=== PATIENT | female | born 1960 | race American Indian/Alaskan Native ===

== ENCOUNTER 2018-03-10 19:17 | Inpatient (IN) | payer OTHER ==
--- NOTE | 2018-03-10 19:28 | Emergency Department Report ---
ED Neuro Deficit HPI - General Chief Complaint: Neuro Symptoms/Deficit Stated Complaint: POSSIBLE STROKE Time Seen by Provider: 03/10/18 19:26 Source: patient, EMS, old records reviewed (no previous [facility] record for review) Mode of arrival: Stretcher Limitations: Physical Limitation - History of Present Illness Initial Comments: 57-year-old female the past medical history of hypertension presents to the ER with stroke symptoms. Patient was last seen normal by her family members 2 hours prior to arrival. Her found her on the floor rubbing her left leg and unable to speak. Patient presents with left-sided facial droop, typically slurred speech, and left-sided weakness. Patient denies any pain. Pt is compliant with her bp med with last dose this am. PMD: [facility] - Related Data Home Medications: Home Medications Medication Instructions Recorded Confirmed Last Taken Lisinopril/Hydrochlorothiazide 2 each PO QDAY 03/10/18 03/10/18 Unknown [Zestoretic 10-12.5 mg Tablet] Allergies/Adverse Reactions: Allergies Allergy/AdvReac Type Severity Reaction Status Date / Time No Known Allergies Allergy Verified 03/10/18 20:26 ED Review of Systems ROS: Stated complaint: POSSIBLE STROKE Other details as noted in HPI Comment: All other systems reviewed and negative ED Past Medical Hx - Medications Home Medications: Home Medications Medication Instructions Recorded Confirmed Last Taken Type Lisinopril/Hydrochlorothiazide 2 each PO QDAY 03/10/18 03/10/18 Unknown History [Zestoretic 10-12.5 mg Tablet] ED Neuro Physical Exam - General Limitations: Physical Limitation Suspected Stroke: Yes - NIHSS Assessment Interval: Baseline 1a. Level of Consciousness: alert 1b. LOC Questions: answers correctly 1c. LOC Commands: performs tasks correctly 2. Best Gaze: normal 3. Visual: no visual loss 4. Facial Palsy: complete paralysis (left) 5b. Motor Arm Right: no movement 5a. Motor Arm Left: no drift 6a. Motor Leg Left: no drift 6b. Motor Leg Right: no gravity effort 7. Limb Ataxia: present 1 limb (unable to move left arm) 8. Sensory: normal 9. Best Language: no aphasia 10. Dysarthria: severe dysarthria 11. Extinction/Inattention: no abnormality Total Score: 13 Stroke Severity: Moderate Stroke - Other Other exam information: General: No limitations, patient is alert in no acute distress Head exam: Atraumatic, normocephalic Eyes exam: Normal appearance, pupils equal reactive to light, extraocular movements intact ENT: Moist mucous membrane, normal oropharynx Neck exam: Normal inspection, full range of motion, no meningismus nontender Respiratory exam: Clear to auscultation bilateral, no wheezes, rales, crackles Cardiovascular: Normal rate and rhythm, normal heart sounds Abdomen: Soft, nondistended, and nontender, with normal bowel sounds, no rebound, or guarding Extremity: Full range of motion normal inspection no deformity Back: Normal Inspection, full range of motion, no tenderness Neurologic: Alert, see NIHSS Psychiatric: normal affect, normal mood Skin: Warm, dry, intact ED Course Vital Signs 03/10/18 03/10/18 03/10/18 19:27 19:30 19:45 Temperature 98.7 F Pulse Rate 90 Respiratory 18 18 Rate Blood Pressure 133/80 119/74 122/77 Blood Pressure 133/80 [Right] O2 Sat by Pulse 100 98 99 Oximetry 03/10/18 03/10/18 03/10/18 20:00 20:03 20:05 Temperature Pulse Rate 89 89 89 Respiratory 14 Rate Blood Pressure 124/69 124/69 124/69 Blood Pressure [Right] O2 Sat by Pulse 99 Oximetry 03/10/18 03/10/18 03/10/18 20:15 20:34 20:45 Temperature Pulse Rate 90 90 102 H Respiratory 18 16 17 Rate Blood Pressure 121/63 Blood Pressure 127/80 144/82 [Right] O2 Sat by Pulse 99 97 97 Oximetry 03/10/18 03/10/18 03/10/18 21:01 21:15 21:31 Temperature Pulse Rate 92 H 95 H 91 H Respiratory 15 11 L 18 Rate Blood Pressure 124/76 131/77 141/66 Blood Pressure [Right] O2 Sat by Pulse 99 96 95 Oximetry 03/10/18 03/10/18 03/10/18 21:51 22:01 22:21 Temperature Pulse Rate 76 80 95 H Respiratory 18 19 18 Rate Blood Pressure 145/66 129/66 135/75 Blood Pressure [Right] O2 Sat by Pulse 97 97 96 Oximetry - Reevaluation(s) Reevaluation #1: 03/10/18 21:39 RN reports that pt has some swelling to left side face. Pt has swelling to left upper lift and left cheek. TPA has finished infusing and pt returned from ct angio and received IV contrast. No tongue swelling or difficulty breathing. PT remains NPO since she is drooling intermittently since arrival secondary to cva. IV benadryl and Solumedrol ordered in ED. - Consultations Consultation #1: 03/10/18 19:34 case d/w DR Ng, he will consult on pt 03/10/18 19:53 Dr Ng aggrees to tpa, rec cta head and neck Consultation #2: 03/10/18 20:09 Case d/w Dr Vega with [facility] who approves admission here - Lab Data Result diagrams: 03/10/18 19:25 03/10/18 19:25 Lab Results 03/10/18 03/10/18 03/10/18 Range/Units 19:25 19:25 19:25 WBC 11.6 H (4.5-11.0) K/mm3 RBC 4.60 (3.65-5.03) M/mm3 Hgb 14.0 (10.1-14.3) gm/dl Hct 41.7 (30.3-42.9) % MCV 91 (79-97) fl MCH 30 (28-32) pg MCHC 34 (30-34) % RDW 14.2 (13.2-15.2) % Plt Count 210 (140-440) K/mm3 Lymph % (Auto) 14.8 (13.4-35.0) % [place] % (Auto) 4.6 (0.0-7.3) % Eos % (Auto) 0.3 (0.0-4.3) % Baso % (Auto) 0.3 (0.0-1.8) % Lymph # 1.7 (1.2-5.4) K/mm3 [place] # 0.5 (0.0-0.8) K/mm3 Eos # 0.0 (0.0-0.4) K/mm3 Baso # 0.0 (0.0-0.1) K/mm3 Total Counted Cancelled Seg Neutrophils % 80.0 H (40.0-70.0) % Seg Neuts % (Manual) Cancelled Band Neutrophils % Cancelled Lymphocytes % (Manual) Cancelled Reactive Lymphs % (Man) Cancelled Monocytes % (Manual) Cancelled Eosinophils % (Manual) Cancelled Basophils % (Manual) Cancelled Metamyelocytes % Cancelled Myelocytes % Cancelled Promyelocytes % Cancelled Blast Cells % Cancelled Nucleated RBC % Cancelled Seg Neutrophils # 9.1 H (1.8-7.7) K/mm3 Seg Neutrophils # Man Cancelled Band Neutrophils # Cancelled Lymphocytes # (Manual) Cancelled Abs React Lymphs (Man) Cancelled Monocytes # (Manual) Cancelled Eosinophils # (Manual) Cancelled Basophils # (Manual) Cancelled Metamyelocytes # Cancelled Myelocytes # Cancelled Promyelocytes # Cancelled Blast Cells # Cancelled WBC Morphology Cancelled Hypersegmented Neuts Cancelled Hyposegmented Neuts Cancelled Hypogranular Neuts Cancelled Hypersegmented Polys Cancelled Smudge Cells Cancelled Toxic Granulation Cancelled Toxic Vacuolation Cancelled Dohle Bodies Cancelled Pelger-Huet Anomaly Cancelled Shayla Rods Cancelled Platelet Estimate Cancelled Clumped Platelets Cancelled Plt Clumps, EDTA Cancelled Large Platelets Cancelled Giant Platelets Cancelled Platelet Satelliting Cancelled Plt Morphology Comment Cancelled RBC Morphology Cancelled Dimorphic RBCs Cancelled Polychromasia Cancelled Hypochromasia Cancelled Poikilocytosis Cancelled Basophilic Stippling Cancelled Anisocytosis Cancelled Microcytosis Cancelled Macrocytosis Cancelled Spherocytes Cancelled Pappenheimer Bodies Cancelled Sickle Cells Cancelled Target Cells Cancelled Tear Drop Cells Cancelled Ovalocytes Cancelled Stomatocytes Cancelled Helmet Cells Cancelled [place] Bodies Cancelled Independence Rings Cancelled [place] Cells Cancelled Bite Cells Cancelled Crenated Cell Cancelled Elliptocytes Cancelled Acanthocytes (Spur) Cancelled Rouleaux Cancelled Hemoglobin C Crystals Cancelled Schistocytes Cancelled Malaria parasites Cancelled Keron Bodies Cancelled Hem Pathologist Commnt Cancelled PT 10.7 L (12.2-14.9) Sec. INR 0.74 L (0.87-1.13) APTT > 240.0 H* (24.2-36.6) Sec. Thrombin Time (15.1-19.6) Sec. Sodium 139 (137-145) mmol/L Potassium 3.5 L (3.6-5.0) mmol/L Chloride 99.3 (98-107) mmol/L Carbon Dioxide 26 (22-30) mmol/L Anion Gap 17 mmol/L BUN 13 (7-17) mg/dL Creatinine 0.7 (0.7-1.2) mg/dL Estimated GFR > 60 ml/min BUN/Creatinine Ratio 19 % Glucose 124 H (65-100) mg/dL POC Glucose (70-105) Calcium 9.8 (8.4-10.2) mg/dL Troponin T < 0.010 (0.00-0.029) ng/mL 03/10/18 03/10/18 03/10/18 Range/Units 19:25 20:15 21:31 WBC (4.5-11.0) K/mm3 RBC (3.65-5.03) M/mm3 Hgb (10.1-14.3) gm/dl Hct (30.3-42.9) % MCV (79-97) fl MCH (28-32) pg MCHC (30-34) % RDW (13.2-15.2) % Plt Count (140-440) K/mm3 Lymph % (Auto) (13.4-35.0) % [place] % (Auto) (0.0-7.3) % Eos % (Auto) (0.0-4.3) % Baso % (Auto) (0.0-1.8) % Lymph # (1.2-5.4) K/mm3 [place] # (0.0-0.8) K/mm3 Eos # (0.0-0.4) K/mm3 Baso # (0.0-0.1) K/mm3 Total Counted Seg Neutrophils % (40.0-70.0) % Seg Neuts % (Manual) Band Neutrophils % Lymphocytes % (Manual) Reactive Lymphs % (Man) Monocytes % (Manual) Eosinophils % (Manual) Basophils % (Manual) Metamyelocytes % Myelocytes % Promyelocytes % Blast Cells % Nucleated RBC % Seg Neutrophils # (1.8-7.7) K/mm3 Seg Neutrophils # Man Band Neutrophils # Lymphocytes # (Manual) Abs React Lymphs (Man) Monocytes # (Manual) Eosinophils # (Manual) Basophils # (Manual) Metamyelocytes # Myelocytes # Promyelocytes # Blast Cells # WBC Morphology Hypersegmented Neuts Hyposegmented Neuts Hypogranular Neuts Hypersegmented Polys Smudge Cells Toxic Granulation Toxic Vacuolation Dohle Bodies Pelger-Huet Anomaly Shayla Rods Platelet Estimate Clumped Platelets Plt Clumps, EDTA Large Platelets Giant Platelets Platelet Satelliting Plt Morphology Comment RBC Morphology Dimorphic RBCs Polychromasia Hypochromasia Poikilocytosis Basophilic Stippling Anisocytosis Microcytosis Macrocytosis Spherocytes Pappenheimer Bodies Sickle Cells Target Cells Tear Drop Cells Ovalocytes Stomatocytes Helmet Cells [place] Bodies [place] Rings [place] Cells Bite Cells Crenated Cell Elliptocytes Acanthocytes (Spur) Rouleaux Hemoglobin C Crystals Schistocytes Malaria parasites Keron Bodies Hem Pathologist Commnt PT 13.2 (12.2-14.9) Sec. INR 0.95 (0.87-1.13) APTT 25.3 (24.2-36.6) Sec. Thrombin Time 15.7 (15.1-19.6) Sec. Sodium (137-145) mmol/L Potassium (3.6-5.0) mmol/L Chloride (98-107) mmol/L Carbon Dioxide (22-30) mmol/L Anion Gap mmol/L BUN (7-17) mg/dL Creatinine (0.7-1.2) mg/dL Estimated GFR ml/min BUN/Creatinine Ratio % Glucose (65-100) mg/dL POC Glucose 133 H (70-105) Calcium (8.4-10.2) mg/dL Troponin T (0.00-0.029) ng/mL - EKG Data -: EKG Interpreted by Ne EKG shows normal: sinus rhythm, axis (qrs 21), QRS complexes (qrsd 92), ST-T waves (no stemi/t inv) Rate: normal (82) When compared to previous EKG there are: previous EKG unavailable - Radiology Data Radiology results: report reviewed ct head: naf as per radiology FINAL REPORT EXAM: CT HEAD/BRAIN WO CON HISTORY: neuro deficits lt; 6hrs or sx present upon awakening TECHNIQUE: Standard unenhanced CT of the head at 5.0 millimeter axial increments. PRIORS: None. FINDINGS: The ventricular system is normal in size and configuration. There is no evidence for parenchymal volume loss. There is no evidence for mass lesion, mass effect, midline shift, acute intracranial hemorrhage, or acute ischemia/ infarction. No evidence for acute skull fracture is seen. No abnormality in the overlying scalp soft tissues is seen. Visualized paranasal sinuses are clear. IMPRESSION: Negative CT of the head. No acute intracranial process noted. FINAL REPORT PROCEDURE: CT ANGIO HEAD TECHNIQUE: Computerized tomographic angiography of the head was performed after the IV injection of iodinated nonionic contrast including image processing. The image data was postprocessed using 2-dimensional multiplanar reformatted (MPR) and 3-dimensional (MIP and/or volume rendered) techniques. HISTORY: acute cva, left sided weakness/facial droop COMPARISON: No prior studies are available for comparison. FINDINGS: Carotid siphons: Normal. Anterior cerebral arteries: Normal. Middle cerebral arteries : Normal. Posterior cerebral arteries:Normal. Vertebral arteries including basilar: Normal. Aneurysms: None. Dural sinuses: Normal. IMPRESSION: Unremarkable study FINAL REPORT PROCEDURE: CT ANGIO NECK TECHNIQUE: Computerized tomographic angiography of the neck was performed after the IV injection of iodinated nonionic contrast including image processing. The image data was postprocessed using 2-dimensional multiplanar reformatted (MPR) and 3-dimensional (MIP and/or volume rendered) techniques. HISTORY: acute cva, left sided weakness/facial droop COMPARISON: No prior studies are available for comparison. Note: Assessment of carotid artery stenosis is based on measurement of the distal internal carotid artery diameter as the denominator for stenosis calculations and the [place] Symptomatic Carotid Endarterectomy Trial (NASCET) stenosis criteria . CPT 3100F FINDINGS: Sinuses: Normal . Non vascular cervical structures: No significant abnormality . Aortic arch: Normal . Bilateral carotid arteries: Bilateral internal carotid arteries or tortuous without any evidence of stenosis. Bilateral common carotid arteries are unremarkable. External carotid arteries are patent.. Vertebral arteries: Origin of the right vertebral artery is not well visualized. Otherwise bilateral vertebral arteries are patent without any evidence of stenosis.. IMPRESSION: No evidence of carotid stenosis - Medical Decision Making Acute CVA Patient received TPA CT angio head and neck unremarkable [facility] approved admission here Patient developed some left-sided facial swelling. Unsure if it is secondary to TPA or IV contrast at this time. Patient received Benadryl and Solu-Medrol. Hospitalist informed for admission initially abl coags, normal when repeated - Differential Diagnosis cva, ich, hypoglycemia, encephalopathy, conversion disorder Critical Care Time: No Critical care attestation.: If time is entered above; I have spent that time in minutes in the direct care of this critically ill patient, excluding procedure time. ED Disposition Clinical Impression: Acute CVA (cerebrovascular accident), Left-sided weakness, Dysarthria, History of hypertension, Received intravenous tissue plasminogen activator (tPA) in emergency department, Allergic reaction, Weakness on left side of face Disposition: [id number] OP ADMIT IP TO THIS HOSP Is pt being admited?: Yes Condition: Stable Time of Disposition: 22:02 (Dr Alarcon/hosp)
[2018-03-10] MEDS ORDERED: ACTIVASE ONE (19:41)
--- NOTE | 2018-03-10 19:41 | Cat Scan Report ---
FINAL REPORT EXAM: CT HEAD/BRAIN WO CON HISTORY: neuro deficits < 6hrs or sx present upon awakening TECHNIQUE: Standard unenhanced CT of the head at 5.0 millimeter axial increments. PRIORS: None. FINDINGS: The ventricular system is normal in size and configuration. There is no evidence for parenchymal volume loss. There is no evidence for mass lesion, mass effect, midline shift, acute intracranial hemorrhage, or acute ischemia/ infarction. No evidence for acute skull fracture is seen. No abnormality in the overlying scalp soft tissues is seen. Visualized paranasal sinuses are clear. IMPRESSION: Negative CT of the head. No acute intracranial process noted.
[2018-03-10] MEDS ORDERED: NACL 0.9% 1000 ML 1,000 ML ONE (19:51)
[2018-03-10] MEDS ORDERED: ACTIVASE IV ONE ×2 (19:51)
[2018-03-10] MEDS ORDERED: NACL 0.9% IV ONE (19:51)
[2018-03-10 19:54] LABS: Hematocrit 41.7 % (30.3-42.9); Mean Corpuscular HGB Conc 34 % (30-34); Mean Corpuscular Hemoglobin 30 pg (28-32); Mean Corpuscular Volume 91 fl (79-97); Platelet Count 210 K/mm3 (140-440); Red Cell Distribution Width 14.2 % (13.2-15.2)
[2018-03-10 20:03] LABS: BUN/Creatinine Ratio 19; Blood Urea Nitrogen 13 mg/dL (7-17); Calcium 9.8 mg/dL (8.4-10.2); Hemolysis Index 16
[2018-03-10 20:11] LABS: Basophils % (Auto) 0.3 % (0.0-1.8); Eosinophils % (Auto) 0.3 % (0.0-4.3); Lymphocytes # (Auto) 1.7 K/mm3 (1.2-5.4); Lymphocytes % (Auto) 14.8 % (13.4-35.0); Monocytes # (Auto) 0.5 K/mm3 (0.0-0.8); Monocytes % (Auto) 4.6 % (0.0-7.3)
[2018-03-10 20:19] LABS: INR 0.74 (0.87-1.13)
[2018-03-10 20:54] LABS: Partial Thromboplastin Time > 240.0 Sec. (24.2-36.6)
--- NOTE | 2018-03-10 21:27 | Cat Scan Report ---
FINAL REPORT PROCEDURE: CT ANGIO NECK TECHNIQUE: Computerized tomographic angiography of the neck was performed after the IV injection of iodinated nonionic contrast including image processing. The image data was postprocessed using 2-dimensional multiplanar reformatted (MPR) and 3-dimensional (MIP and/or volume rendered) techniques. HISTORY: acute cva, left sided weakness/facial droop COMPARISON: No prior studies are available for comparison. Note: Assessment of carotid artery stenosis is based on measurement of the distal internal carotid artery diameter as the denominator for stenosis calculations and the [place] Symptomatic Carotid Endarterectomy Trial (NASCET) stenosis criteria . CPT 3100F FINDINGS: Sinuses: Normal . Non vascular cervical structures: No significant abnormality . Aortic arch: Normal . Bilateral carotid arteries: Bilateral internal carotid arteries or tortuous without any evidence of stenosis. Bilateral common carotid arteries are unremarkable. External carotid arteries are patent.. Vertebral arteries: Origin of the right vertebral artery is not well visualized. Otherwise bilateral vertebral arteries are patent without any evidence of stenosis.. IMPRESSION: No evidence of carotid stenosis
[2018-03-10] MEDS ORDERED: BENADRYL IV ONE (21:38)
[2018-03-10] MEDS ORDERED: SOLU-Medrol IV ONE (21:38)
--- NOTE | 2018-03-10 21:51 | Cat Scan Report ---
FINAL REPORT PROCEDURE: CT ANGIO HEAD TECHNIQUE: Computerized tomographic angiography of the head was performed after the IV injection of iodinated nonionic contrast including image processing. The image data was postprocessed using 2-dimensional multiplanar reformatted (MPR) and 3-dimensional (MIP and/or volume rendered) techniques. HISTORY: acute cva, left sided weakness/facial droop COMPARISON: No prior studies are available for comparison. FINDINGS: Carotid siphons: Normal. Anterior cerebral arteries: Normal. Middle cerebral arteries : Normal. Posterior cerebral arteries:Normal. Vertebral arteries including basilar: Normal. Aneurysms: None. Dural sinuses: Normal. IMPRESSION: Unremarkable study
[2018-03-10 21:55] LABS: INR 0.95 (0.87-1.13); Partial Thromboplastin Time 25.3 Sec. (24.2-36.6)
[2018-03-10] MEDS ORDERED: NACL 0.9% 1000 ML 1,000 ML IV SCH (23:45)
[2018-03-10] MEDS ORDERED: ZOFRAN IV PRN ×2 (23:45→23:47)
[2018-03-10] MEDS ORDERED: SODIUM CHLORIDE FLUSH SYRINGE 10 ML IV PRN (23:45)
--- NOTE | 2018-03-10 23:45 | History and Physical Report ---
History of Present Illness Date of examination: 03/10/18 History of present illness: This is a 57-year-old woman with a history of hypertension comes emergency room because she was found on the floor by her around 4:45 PM. She is noted to be aphasic and unable to move the left side. She status post TPA, CTA of head and neck was done, shortly after the patient developed swelling on the left side of lower lip. Review of systems Constitutional: no weight loss, chills, fever Ears, eyes, nose, mouth and throat: no nasal congestion, no nasal discharge, no sinus pressure, no vision change, no red eye. Neck: No neck pain or rigidity. Cardiovascular: no chest pain, palpitations Respiratory: no cough, shortness of breath Gastrointestinal: no abdominal pain hematochezia Genitourinary : no frequency , no hematuria Musculoskeletal: no joint swelling or muscle ache Integumentary: no rash, no pruritis Neurological: no parathesia Endocrine: no cold or heat intolerance, no polyuria or polydipsia Hematologic/Lymphatic: no easy bruising, no easy bleeding, no gland swelling Allergic/Immunologic: no urticaria, no angioedema. PAST MEDICAL HISTORY: Hypertension PAST SURGICAL HISTORY: None SOCIAL HISTORY: No alcohol, no drugs, tobacco FAMILY HISTORY: Hypertension Medications and Allergies Allergies Allergy/AdvReac Type Severity Reaction Status Date / Time No Known Allergies Allergy Verified 03/10/18 20:26 Home Medications Medication Instructions Recorded Confirmed Last Taken Type Lisinopril/Hydrochlorothiazide 2 each PO QDAY 03/10/18 03/10/18 Unknown History [Zestoretic 10-12.5 mg Tablet] Exam - Physical Exam Narrative exam: Gen. appearance: Patient lying in bed, no apparent distress HEENT: Normocephalic, atraumatic, pupils equally round and reactive to light, extraocular movement intact, and no sclericterus,. No JVD or thyromegaly or nodule,neck supple, no carotid bruit ,mucous membranes moist, no exudate or erythema Heart: S1, S2, regular rate and rhythm Lungs: Clear bilaterally, breathing comfortable Abdomen: Positive bowel sounds, non-tender, nondistended, no organomegaly Extremity:no edema cyanosis, clubbing Skin: no rash, dry, warm Neuro: Oriented 3, cranial nerves II-12 intact,aphasic, left facial droop, left upper and lower extremity 0/5 and sensory intact - Constitutional Vitals: Temp Pulse Resp BP Pulse Ox 98.7 F 95 H 18 135/75 96 03/10/18 19:27 03/10/18 22:21 03/10/18 22:21 03/10/18 22:21 03/10/18 22:21 Results - Labs CBC & Chem 7: 03/10/18 19:25 03/10/18 19:25 Labs: Abnormal lab results 03/10/18 03/10/18 03/10/18 Range/Units 19:25 19:25 19:25 WBC 11.6 H (4.5-11.0) K/mm3 Seg Neutrophils % 80.0 H (40.0-70.0) % Seg Neutrophils # 9.1 H (1.8-7.7) K/mm3 PT 10.7 L (12.2-14.9) Sec. INR 0.74 L (0.87-1.13) APTT > 240.0 H* (24.2-36.6) Sec. Potassium 3.5 L (3.6-5.0) mmol/L Glucose 124 H (65-100) mg/dL POC Glucose (70-105) 03/10/18 Range/Units 20:15 WBC (4.5-11.0) K/mm3 Seg Neutrophils % (40.0-70.0) % Seg Neutrophils # (1.8-7.7) K/mm3 PT (12.2-14.9) Sec. INR (0.87-1.13) APTT (24.2-36.6) Sec. Potassium (3.6-5.0) mmol/L Glucose (65-100) mg/dL POC Glucose 133 H (70-105) - Imaging and Cardiology CT Scan - head: report reviewed Assessment and Plan CT angiogram the head and neck reviewed Assessment Acute CVA, s/p TPA Allergic reaction possible to dye versus TPA Hypertension, now normotensive Plan Admit medicine Do neuro checks, gentle IV fluid Obtain echo, consult neurology, critical care Consults physical, occupational and speech therapy Start steroids, Benadryl, Pepcid DVT prophylaxis
[2018-03-10] MEDS ORDERED: SODIUM CHLORIDE FLUSH SYRINGE 10 ML INJ PRN (23:47)
[2018-03-10] MEDS ORDERED: APRESOLINE IV PRN (23:47)
[2018-03-11] MEDS: BENADRYL IV SCH ×3 (04:11→23:26)
[2018-03-11] MEDS: SOLU-Medrol IV SCH ×2 (05:34→14:30)
[2018-03-11 05:57] LABS: Basophils % (Auto) 0.2 % (0.0-1.8); Eosinophils % (Auto) 0.1 % (0.0-4.3); Hematocrit 40.5 % (30.3-42.9); Hemoglobin 13.5 gm/dl (10.1-14.3); Lymphocytes # (Auto) 0.9 K/mm3 (1.2-5.4); Mean Corpuscular HGB Conc 33 % (30-34); Mean Corpuscular Hemoglobin 30 pg (28-32); Mean Corpuscular Volume 91 fl (79-97); Monocytes # (Auto) 0.1 K/mm3 (0.0-0.8); Monocytes % (Auto) 0.6 % (0.0-7.3); Platelet Count 220 K/mm3 (140-440); Red Blood Count 4.48 M/mm3 (3.65-5.03); Red Cell Distribution Width 14.4 % (13.2-15.2)
[2018-03-11 06:04] LABS: BUN/Creatinine Ratio 20; Blood Urea Nitrogen 12 mg/dL (7-17); Calcium 9.4 mg/dL (8.4-10.2); HDL Cholesterol 73 mg/dL (40-59); Hemolysis Index 8; LDL Cholesterol,Direct 101 mg/dL (50-130)
[2018-03-11] MEDS: SODIUM CHLORIDE FLUSH SYRINGE 10 ML IV SCH ×2 (10:30→22:14)
[2018-03-11] MEDS: PEPCID IV SCH ×2 (10:30→22:15)
--- NOTE | 2018-03-11 11:26 | Consultation ---
History of Present Illness Reason for consult: other (L focal deficit/hemiparesis, Stroke, s/p TPA) History of present illness: 57-year-old female , admitted to the ICU after she prsented to the ER with stroke like symptoms. PMH of HTN. pr notes, "Patient was last seen normal by her family members 2 hours prior to arrival. Her found her on the floor rubbing her left leg and unable to speak. Patient presents with left- sided facial droop, typically slurred speech, and left-sided weakness. Patient denies any pain. Pt is compliant with her bp med with last dose this am". Admitted to ICU after TPA, for neuro monitoring. Medications and Allergies Allergies Allergy/AdvReac Type Severity Reaction Status Date / Time No Known Allergies Allergy Verified 03/10/18 20:26 Home Medications Medication Instructions Recorded Confirmed Last Taken Type Lisinopril/Hydrochlorothiazide 2 each PO QDAY 03/10/18 03/10/18 Unknown History [Zestoretic 10-12.5 mg Tablet] Active Meds: Active Medications Acetaminophen (Tylenol) 650 mg PO Q4H PRN PRN Reason: Pain MILD(1-3)/Fever >100.5/ANGELES Diphenhydramine HCl (Benadryl) 12.5 mg IV Q6HR [facility] Last Admin: 03/11/18 04:11 Dose: 12.5 mg Famotidine (Pepcid) 20 mg IV BID DIDIER Hydralazine HCl (Apresoline) 5 mg IV Q6H PRN PRN Reason: Keep SBP between 160-185 mm Hg Sodium Chloride (Nacl 0.9% 1000 Ml) 1,000 mls @ 75 mls/hr IV DIRECT DIDIER Last Admin: 03/11/18 01:49 Dose: 75 mls/hr Methylprednisolone Sodium Succinate (Solu-Medrol) 60 mg IV Q8HR DIDIER Last Admin: 03/11/18 05:34 Dose: 60 mg Ondansetron HCl (Zofran) 4 mg IV Q8H PRN PRN Reason: Nausea And Vomiting Sodium Chloride (Sodium Chloride Flush Syringe 10 Ml) 10 ml IV BID DIDIER Sodium Chloride (Sodium Chloride Flush Syringe 10 Ml) 10 ml IV PRN PRN PRN Reason: LINE FLUSH Physical Examination Vital signs: Vital Signs Temp Pulse Resp BP Pulse Ox 98.7 F 90 18 133/80 100 03/10/18 19:27 03/10/18 19:27 03/10/18 19:27 03/10/18 19:27 03/10/18 19:27 General appearance: alert Eyes: non-icteric ENT: oropharynx moist Neck: supple, no lymphadenopathy, no JVD Ascultation: Bilateral: clear Percussion: Bilateral: not dull Tactile fremitus: Bilateral: normal Cardiovascular: regular rate and rhythm Gastrointestinal: normoactive bowel sounds, non-distended Integumentary: normal Extremities: no cyanosis, no edema Musculoskeletal: no deformities normal mental status, pupils equal and round, other (RUE/RLL moter, perception normal. LUE/LLE hemoparesis, + pain, + Babinsky) Results - Laboratory Findings CBC and BMP: 03/11/18 05:07 03/11/18 05:07 PT/INR, D-dimer PT 13.2 Sec. (12.2-14.9) 03/10/18 21:31 INR 0.95 (0.87-1.13) 03/10/18 21:31 Abnormal lab findings: Abnormal Labs 03/10/18 03/10/18 03/10/18 19:25 19:25 19:25 WBC 11.6 H Lymph % (Auto) Lymph # Seg Neutrophils % 80.0 H Seg Neutrophils # 9.1 H PT 10.7 L INR 0.74 L APTT > 240.0 H* Potassium 3.5 L Creatinine Glucose 124 H POC Glucose HDL Cholesterol 03/10/18 03/11/18 03/11/18 20:15 05:07 05:07 WBC Lymph % (Auto) 10.0 L Lymph # 0.9 L Seg Neutrophils % 89.1 H Seg Neutrophils # 8.1 H PT INR APTT Potassium Creatinine 0.6 L Glucose 138 H POC Glucose 133 H HDL Cholesterol 73 H Assessment and Plan Stroke, s/p TPA - aphasia, LT hemiparesis. CT's negative HTN Recommendations f/u TPA protocol Serial neuro checks per protocol Monitor BP,MAP NPO Aspirationprecautions, elevate HOB Speech therapy check MRI, Neuro follow up. Discussed with natalyanad,daughter and family in detail. All questions answered CCT 40 min
--- NOTE | 2018-03-11 12:28 | Progress Note ---
Assessment and Plan Acute CVA, s/p TPA - Monitor at ICU - Cont to do neuro checks, gentle IV fluid for hydration - Obtain echo with bubble study, consulted neurology - Consulted physical, occupational and speech therapy, NPO for now - follow MRI result, repeat CT @ 2100 per post-tPA protocol - if no brain bleed then start on aspirin ND, statin Allergic reaction possible to dye versus TPA - cont steroids, Benadryl Hypertension, now normotensive - monitor BP, as needed hydralazine Leukocytosis, likely for acute CVA DVT prophylaxis, SCD for now Subjective Date of service: 03/11/18 Interval history: Patient seen and examined Left sided weakness with aphasia Denies any chest pain or SOB Objective - Constitutional Vitals: Vital Signs - 12hr 03/11/18 03/11/18 03/11/18 00:30 00:36 00:41 Temperature 98.7 F Pulse Rate 76 96 H 74 Pulse Rate [ Apical] Respiratory 19 16 16 Rate Blood Pressure 120/73 120/73 Blood Pressure 132/87 [Right] O2 Sat by Pulse 93 98 94 Oximetry 03/11/18 03/11/18 03/11/18 00:59 01:00 01:11 Temperature 98.6 F Pulse Rate 102 H 94 H 92 H Pulse Rate [ Apical] Respiratory 14 23 20 Rate Blood Pressure 131/77 131/77 Blood Pressure [Right] O2 Sat by Pulse 96 Oximetry 03/11/18 03/11/18 03/11/18 01:21 01:30 01:41 Temperature Pulse Rate 75 73 76 Pulse Rate [ Apical] Respiratory 17 17 16 Rate Blood Pressure 129/75 127/74 131/77 Blood Pressure [Right] O2 Sat by Pulse 95 93 94 Oximetry 03/11/18 03/11/18 03/11/18 01:51 02:00 02:11 Temperature Pulse Rate 71 98 H 66 Pulse Rate [ 98 H Apical] Respiratory 14 14 13 Rate Blood Pressure 133/82 134/81 133/82 Blood Pressure [Right] O2 Sat by Pulse 94 93 97 Oximetry 03/11/18 03/11/18 03/11/18 02:21 02:30 02:41 Temperature Pulse Rate 72 77 73 Pulse Rate [ Apical] Respiratory 14 14 14 Rate Blood Pressure 129/79 133/83 133/83 Blood Pressure [Right] O2 Sat by Pulse 92 92 95 Oximetry 03/11/18 03/11/18 03/11/18 02:51 03:00 03:11 Temperature Pulse Rate 79 84 61 Pulse Rate [ Apical] Respiratory 18 14 18 Rate Blood Pressure 132/92 132/92 140/86 Blood Pressure [Right] O2 Sat by Pulse 95 100 94 Oximetry 03/11/18 03/11/18 03/11/18 03:17 03:21 03:28 Temperature 97.9 F Pulse Rate 64 72 Pulse Rate [ Apical] Respiratory 15 Rate Blood Pressure 129/80 Blood Pressure [Right] O2 Sat by Pulse 94 Oximetry 03/11/18 03/11/18 03/11/18 03:30 03:41 03:51 Temperature Pulse Rate 63 68 59 L Pulse Rate [ Apical] Respiratory 15 17 19 Rate Blood Pressure 129/78 129/78 123/79 Blood Pressure [Right] O2 Sat by Pulse 96 95 96 Oximetry 03/11/18 03/11/18 03/11/18 04:00 04:11 04:21 Temperature Pulse Rate 95 H 78 87 Pulse Rate [ 72 Apical] Respiratory 17 13 14 Rate Blood Pressure 136/101 129/78 146/92 Blood Pressure [Right] O2 Sat by Pulse 96 97 97 Oximetry 03/11/18 03/11/18 03/11/18 04:30 04:41 04:51 Temperature Pulse Rate 86 66 69 Pulse Rate [ Apical] Respiratory 15 18 16 Rate Blood Pressure 155/103 155/103 142/88 Blood Pressure [Right] O2 Sat by Pulse 96 95 94 Oximetry 03/11/18 03/11/18 03/11/18 05:00 05:11 05:21 Temperature Pulse Rate 67 75 75 Pulse Rate [ Apical] Respiratory 11 L 22 16 Rate Blood Pressure 142/89 142/89 155/104 Blood Pressure [Right] O2 Sat by Pulse 96 96 95 Oximetry 03/11/18 03/11/18 03/11/18 05:30 05:41 05:51 Temperature Pulse Rate 85 84 87 Pulse Rate [ Apical] Respiratory 17 15 18 Rate Blood Pressure 163/88 163/88 160/106 Blood Pressure [Right] O2 Sat by Pulse 95 95 92 Oximetry 03/11/18 03/11/18 03/11/18 06:00 06:11 06:21 Temperature Pulse Rate 71 71 69 Pulse Rate [ 70 Apical] Respiratory 17 17 16 Rate Blood Pressure 140/82 140/82 135/79 Blood Pressure [Right] O2 Sat by Pulse 95 93 90 Oximetry 03/11/18 03/11/18 03/11/18 06:30 06:41 06:50 Temperature Pulse Rate 63 89 65 Pulse Rate [ Apical] Respiratory 16 17 19 Rate Blood Pressure 139/81 139/81 139/98 Blood Pressure [Right] O2 Sat by Pulse 97 98 97 Oximetry 03/11/18 03/11/18 03/11/18 07:00 07:11 07:21 Temperature Pulse Rate 65 69 65 Pulse Rate [ Apical] Respiratory 17 15 17 Rate Blood Pressure 155/83 155/83 139/98 Blood Pressure [Right] O2 Sat by Pulse 95 98 96 Oximetry 03/11/18 03/11/18 03/11/18 07:30 07:40 07:51 Temperature Pulse Rate 68 64 64 Pulse Rate [ Apical] Respiratory 13 15 15 Rate Blood Pressure 136/89 139/98 145/84 Blood Pressure [Right] O2 Sat by Pulse 99 98 98 Oximetry 03/11/18 03/11/18 03/11/18 08:00 08:11 08:21 Temperature 98.2 F Pulse Rate 64 73 65 Pulse Rate [ 83 Apical] Respiratory 18 17 21 Rate Blood Pressure 157/86 157/86 136/89 Blood Pressure [Right] O2 Sat by Pulse 96 97 98 Oximetry 03/11/18 03/11/18 03/11/18 08:30 08:41 08:51 Temperature Pulse Rate 62 84 70 Pulse Rate [ Apical] Respiratory 13 21 14 Rate Blood Pressure 153/84 153/84 143/92 Blood Pressure [Right] O2 Sat by Pulse 100 99 97 Oximetry 03/11/18 03/11/18 03/11/18 09:00 09:11 09:21 Temperature Pulse Rate 69 82 67 Pulse Rate [ Apical] Respiratory 18 14 15 Rate Blood Pressure 144/87 144/87 129/70 Blood Pressure [Right] O2 Sat by Pulse 99 97 99 Oximetry 03/11/18 03/11/18 03/11/18 09:30 09:41 09:51 Temperature Pulse Rate 84 85 68 Pulse Rate [ Apical] Respiratory 16 11 L 15 Rate Blood Pressure 129/84 129/84 129/84 Blood Pressure [Right] O2 Sat by Pulse 99 99 98 Oximetry 03/11/18 03/11/18 03/11/18 10:00 10:11 10:21 Temperature Pulse Rate 69 64 64 Pulse Rate [ 81 Apical] Respiratory 17 13 17 Rate Blood Pressure 146/72 146/72 146/72 Blood Pressure [Right] O2 Sat by Pulse 99 97 97 Oximetry 03/11/18 03/11/18 03/11/18 10:30 10:41 10:51 Temperature Pulse Rate 68 95 H 74 Pulse Rate [ Apical] Respiratory 20 14 19 Rate Blood Pressure 136/70 136/70 136/70 Blood Pressure [Right] O2 Sat by Pulse 99 97 99 Oximetry 03/11/18 03/11/18 11:01 11:11 Temperature Pulse Rate 86 89 Pulse Rate [ Apical] Respiratory 14 19 Rate Blood Pressure 144/95 144/95 Blood Pressure [Right] O2 Sat by Pulse 100 99 Oximetry General appearance: Present: no acute distress, well-nourished - EENT Eyes: no scleral icterus, no conjunctival injection ENT: hearing intact, clear oral mucosa Ears: bilateral: normal - Neck Neck: supple, normal ROM - Respiratory Respiratory effort: normal Respiratory: bilateral: CTA - Cardiovascular Rhythm: regular Heart Sounds: Present: S1 & S2. Absent: gallop, rub Extremities: pulses intact, No edema, normal color - Gastrointestinal General gastrointestinal: Present: soft, non-tender, non-distended, normal bowel sounds - Integumentary Integumentary: clear, warm, dry - Musculoskeletal Musculoskeletal: left sided weakness - Neurologic Neurologic: no gait normal - Psychiatric Psychiatric: appropriate mood/affect, cooperative - Labs CBC & Chem 7: 03/12/18 09:01 03/12/18 09:01 Labs: Abnormal lab results 03/10/18 03/10/18 03/10/18 Range/Units 19:25 19:25 19:25 WBC 11.6 H (4.5-11.0) K/mm3 Lymph % (Auto) (13.4-35.0) % Lymph # (1.2-5.4) K/mm3 Seg Neutrophils % 80.0 H (40.0-70.0) % Seg Neutrophils # 9.1 H (1.8-7.7) K/mm3 PT 10.7 L (12.2-14.9) Sec. INR 0.74 L (0.87-1.13) APTT > 240.0 H* (24.2-36.6) Sec. Potassium 3.5 L (3.6-5.0) mmol/L Creatinine (0.7-1.2) mg/dL Glucose 124 H (65-100) mg/dL POC Glucose (70-105) HDL Cholesterol (40-59) mg/dL 03/10/18 03/11/18 03/11/18 Range/Units 20:15 05:07 05:07 WBC (4.5-11.0) K/mm3 Lymph % (Auto) 10.0 L (13.4-35.0) % Lymph # 0.9 L (1.2-5.4) K/mm3 Seg Neutrophils % 89.1 H (40.0-70.0) % Seg Neutrophils # 8.1 H (1.8-7.7) K/mm3 PT (12.2-14.9) Sec. INR (0.87-1.13) APTT (24.2-36.6) Sec. Potassium (3.6-5.0) mmol/L Creatinine 0.6 L (0.7-1.2) mg/dL Glucose 138 H (65-100) mg/dL POC Glucose 133 H (70-105) HDL Cholesterol 73 H (40-59) mg/dL - Imaging and cardiology CT Scan - head: report reviewed
[2018-03-11] MEDS ORDERED: D5NS 1,000 ML IV SCH (13:00)
--- NOTE | 2018-03-11 15:36 | Consultation ---
NEUROLOGY CONSULTATION REASON FOR CONSULTATION: Stroke. HISTORY OF PRESENT ILLNESS: The patient is a 57-year-old unknown handedness patient who was referred for neurological evaluation. There was no family member available at this time. Therefore, the history was obtained from the records and records of the physician. The patient apparently was doing well until yesterday around 4 p.m. or so when the found her on the floor around 4:45 p.m. She could not talk and could not move the left side. He immediately brought her to the Emergency Room where she was evaluated immediately. A stroke was activated. Tele-Neurology was consulted and TPA was infused. The patient had the CTA of the head and the neck and this did not show any evidence of a large vessel occlusion. Apparently after the patient received the TPA or after the CTA, she had received some swelling on the left side of her lower lip and she had received Benadryl. She was then brought to the Intensive Care Unit to be closely watched. The patient did not show any improvement other than a little movement of the left leg as reported by the nurse, but there was no recovery of her speech. REVIEW OF SYSTEMS: Review of body system is negative. Review of neurologic system, loss of speech, left-sided facial drooping, left hemiplegia, drowsiness, swelling of the left lower lip. PAST MEDICAL HISTORY: Hypertension. No previous history of stroke. SOCIAL HISTORY: The patient is . There is no history of alcohol, drugs, or tobacco. FAMILY HISTORY: Hypertension. PHYSICAL EXAMINATION: GENERAL: Revealed a well-developed, healthy-looking patient, who is lying quietly in bed. VITAL SIGNS: Stable. Blood pressure about 122/72. Her pulse rate about 67. The patient is breathing on her own, very comfortable. She has nasal oxygen. Saturation is about 98%. The patient is breathing comfortably, about 18 per minute. HEAD, EYES, EARS, NOSE AND THROAT: Otherwise unremarkable except for some what appeared to be a faint hyperpigmentation on the left side of the upper face. No intracranial or intraorbital bruit. NECK: Supple. No carotid bruit. HEART: Regular in rhythm. No murmur. LUNGS: Decreased breath sounds. ABDOMEN: Soft. EXTREMITIES: Appeared externally normal. No swelling. NEUROLOGIC: The patient is comfortable. She is sleepy, but easily awakened. She has no intelligible speech. She would open her mouth to try to talk. She however followed verbal commands. No speech. Cranial nerve examination, she has a tendency to have a right-sided gaze preference, but sometimes her left eye would waver to the left side. Pupils reactive to light. Full extraocular movement otherwise. She has a left-sided facial paralysis, but the whole left side of the face was involved including the left upper forehead that it appeared like she has a complete left facial weakness. Her tongue is slightly deviated only to the left. The rest of the cranial nerve was limited. Motor examination: Right side is about 5/5 with involuntary movement. The left upper extremity was 0/5 with increased tone, maybe a little flicker of the fingers. Left lower extremity about 2/5 and increased tone also. Reflexes slightly increased on the left compared to the right. The patient has a Babinski on the left. Gait was not possible. INITIAL CLINICAL IMPRESSION: The patient appeared to have a cerebrovascular accident. This is acute and I suspect that this could be an acute thrombosis or a small vessel disease, but affecting an important portion of the brain. By clinical examination, it looks like this could be in the brainstem, probably in the pontine region, on the basis that she appeared to have a complete left facial paralysis affecting even the left upper forehead. However, there is a tendency to right gaze preference such that a right-sided hemispheric lesion is considered also. In any way, the study showed no evidence of large vessel disease occlusion. Therefore, I suspect that this is small vessel thrombosis either in the mid brain stem or kirill or may be a branch occlusion in the distal middle cerebral artery. This speech does reveal that the patient is mute and could not express herself, but she could understand words. If the patient is left-handed, then dominant hemisphere is the right side and therefore this patient has an expressive aphasia. The CT scan of the brain did not show any possibility of hemorrhage. The patient now will have an MRI of the brain. The patient's risk factor is the hypertension, but it has been chronic and affecting the small vessels. RECOMMENDATION: 1. I concur with ICU monitor. 2. The patient should be watched closely. 3. The patient needs 2D echocardiogram if this has not yet been done. MRI of the brain and hopefully MRA. No anticoagulation or antiplatelet at least 24 hours after the TPA has been given. We should watch closely for development of cerebral edema which is a consequence of a big stroke, if this is proven to be a hemispheric rather than a brainstem stroke. IV fluids should be normal saline and avoidance of dextrose. PROGNOSIS: Fair and very guarded. Sixty minutes were involved in the generation of history and physical examination and more than 50% in the coordination of care. Thank you for this referral. ADDENDUM The patient just had an MRI of the brain and it showed a stroke in the branch of the right middle cerebral artery. The source of this is not very clear on the basis that she had a normal CTA, but probably a thrombosis from a branch artery that was not evident. The MRI of the brain, however, showed a discrete stroke, but there was just a very mild shift. The patient also is clinically well neurologically in spite of the deficit. She is awake, alert, communicative in terms of the emotional affect. She responded very well to her . PLAN: 1. At this time, I stopped the Solu-Medrol or methylprednisolone on the basis that this will not help a stroke. 2. We discontinued the D5 IV since this might increase the edema by osmosis. We will put her on normal saline. 3. It will be better to keep her on NG feeding temporarily. I had a long discussion with the and 2 daughters. This is with regard to diagnosis and prognosis. We have to be careful about the development of cerebral edema from this stroke. So the mentation should be observed and the nurse was addressed on this problem. Right now, the patient is in acute status and it will take some time before stabilizing in preparation for a long rehabilitation. The family understood this very well. JOB# [id number] VALERIE/MEG
--- NOTE | 2018-03-11 17:02 | Magnetic Resonance Report ---
FINAL REPORT EXAM: MR MRA/MRV HEAD WO CON HISTORY: stroke TECHNIQUE: MRA of the brain was performed without intravenous contrast. PRIORS: CTA of the head from 03/10/2018. FINDINGS: There is abrupt cutoff of the right middle cerebral artery at the level of the M1 segment. There is absence of the branches distal to this area. The left middle cerebral artery is patent. The anterior cerebral and posterior cerebral arteries are patent. The distal internal carotid arteries are patent. The posterior communicating arteries are patent. The anterior communicating artery is patent. The basilar and distal vertebral arteries are patent. No evidence of intracranial aneurysm. IMPRESSION: Cut off of the right middle cerebral artery at the level of the M1 segment concerning for occlusion. Findings were discussed with TISH Prather at 2 p.m. PST on 03/11/2018.
--- NOTE | 2018-03-11 17:05 | Magnetic Resonance Report ---
FINAL REPORT EXAM: MR BRAIN WO CON HISTORY: acute CVA TECHNIQUE: Multiplanar, multisequence MRI of the brain was performed without intravenous contrast. PRIORS: CT of the head from 03/10/2018. FINDINGS: There is restricted diffusion and edema within the right frontal and temporal lobes as well as the right basal ganglia and caudate nucleus. There is slight right to left midline shift, approximately 2 millimeters. No acute intracranial hemorrhage. There is mild mass effect on the frontal horn of the right lateral ventricle. The basilar cisterns are patent. Several scattered punctate foci of T2 FLAIR hyperintensity are seen in the periventricular and subcortical white matter. There is cutoff of the right MCA flow void. The paranasal sinuses and mastoid air cells are clear. The orbits are intact. The extracranial soft tissues are normal. IMPRESSION: 1. Acute right frontotemporal infarct also involving the right basal ganglia and caudate nucleus. Minimal right to left midline shift of approximately 2 millimeters. 2. Probable occlusion of the right MCA. 3. Mild chronic findings of microvascular ischemic disease. Findings were discussed with TISH Prather at 2 p.m. [facility] on 03/11/2018.
[2018-03-11] MEDS: HumuLIN R SUB-Q SCH ×2 (18:02→23:20)
[2018-03-11] MEDS ORDERED: PANCREAZE DR 10,500 UNIT FEEDTUBE PRN (18:44)
[2018-03-11] MEDS ORDERED: SIMPLE SYRUP FEEDTUBE PRN ×2 (18:44)
[2018-03-11] MEDS ORDERED: SODIUM BICARBONATE FEEDTUBE PRN (18:44)
[2018-03-11] MEDS ORDERED: NACL 0.9% 1000 ML 1,000 ML ONE (18:52)
[2018-03-11] MEDS ORDERED: NACL 0.9% 1000 ML 1,000 ML IV SCH (19:00)
--- NOTE | 2018-03-11 20:20 | Cat Scan Report ---
FINAL REPORT PROCEDURE: CT HEAD/BRAIN WO CON TECHNIQUE: Computerized tomography of the head was performed without contrast material. HISTORY: s/p TPA. Infarct COMPARISON: MRI 03/11/2018 FINDINGS: There is low-density in the right frontal lobe and right capsuloganglionic regions, compatible with previously seen infarct. No acute hemorrhage is seen. There is mass effect on the right lateral ventricle. No hydrocephalus. Basal cisterns are preserved. Calvarium is intact. Visualized paranasal sinuses and mastoids are aerated. IMPRESSION: Evidence of right frontal and right capsuloganglionic infarct again visualized. No acute hemorrhage is seen
[2018-03-11] MEDS ORDERED: TYLENOL PR ONE (20:47)
[2018-03-11] MEDS: NACL 0.9% 1000 ML 1,000 ML IV SCH (22:00)
[2018-03-11] MEDS: ASPIRIN PR SCH (23:23)
[2018-03-12] MEDS: NACL 0.9% 1000 ML 1,000 ML IV SCH (04:11)
[2018-03-12] MEDS: HumuLIN R SUB-Q SCH ×4 (05:23→23:17)
[2018-03-12] MEDS: BENADRYL IV SCH (06:31)
--- NOTE | 2018-03-12 08:44 | Progress Note ---
Assessment and Plan Stroke, s/p TPA - aphasia, LT hemiparesis. CT's negative HTN Recommendations f/u neuro recommendations ASA Serial neuro checks per protocol Monitor BP,MAP.Avoid hypotension Feeding tube in Aspiration precautions, elevate HOB Speech therapy check MRI,MRA noted. Neuro follow up appreciated Discussed with patient,ceci in detail. All questions answered CCT 31 min Subjective Date of service: 03/12/18 Principal diagnosis: stroke Interval history: Some soreness,foot pain ( L??) earlier. No events overnight Objective Vital Signs - 12hr 03/11/18 03/11/18 03/11/18 20:51 20:59 21:00 Pulse Rate 72 66 Pulse Rate [ 65 None] Pulse Rate [ 95 H Right Arm] Respiratory 15 18 17 Rate Respiratory 15 Rate [Right Arm ] Blood Pressure 139/82 167/100 122/70 Blood Pressure 139/82 [Right Arm] O2 Sat by Pulse 94 95 93 Oximetry O2 Sat by Pulse 95 Oximetry [ Right Arm] 03/11/18 03/11/18 03/11/18 21:11 21:18 21:21 Pulse Rate 73 69 Pulse Rate [ None] Pulse Rate [ Right Arm] Respiratory 17 16 13 Rate Respiratory Rate [Right Arm ] Blood Pressure 147/100 147/100 Blood Pressure [Right Arm] O2 Sat by Pulse 94 97 Oximetry O2 Sat by Pulse Oximetry [ Right Arm] 03/11/18 03/11/18 03/11/18 21:31 21:41 21:51 Pulse Rate 67 75 73 Pulse Rate [ None] Pulse Rate [ Right Arm] Respiratory 17 15 15 Rate Respiratory Rate [Right Arm ] Blood Pressure 147/100 122/70 122/70 Blood Pressure [Right Arm] O2 Sat by Pulse 95 91 91 Oximetry O2 Sat by Pulse Oximetry [ Right Arm] 03/11/18 03/11/18 03/11/18 22:00 22:11 22:18 Pulse Rate 71 67 Pulse Rate [ None] Pulse Rate [ 95 H Right Arm] Respiratory 14 16 14 Rate Respiratory 14 Rate [Right Arm ] Blood Pressure 118/65 118/65 Blood Pressure 147/100 [Right Arm] O2 Sat by Pulse 95 96 Oximetry O2 Sat by Pulse 95 Oximetry [ Right Arm] 03/11/18 03/11/18 03/11/18 22:21 22:31 22:41 Pulse Rate 64 60 61 Pulse Rate [ None] Pulse Rate [ Right Arm] Respiratory 15 14 15 Rate Respiratory Rate [Right Arm ] Blood Pressure 118/65 118/65 118/65 Blood Pressure [Right Arm] O2 Sat by Pulse 96 98 97 Oximetry O2 Sat by Pulse Oximetry [ Right Arm] 03/11/18 03/11/18 03/11/18 22:51 22:55 23:00 Pulse Rate 88 78 66 Pulse Rate [ None] Pulse Rate [ 62 Right Arm] Respiratory 14 20 12 Rate Respiratory 14 Rate [Right Arm ] Blood Pressure 118/65 118/65 132/76 Blood Pressure 132/76 [Right Arm] O2 Sat by Pulse 98 95 98 Oximetry O2 Sat by Pulse 95 Oximetry [ Right Arm] 03/11/18 03/11/18 03/11/18 23:11 23:21 23:31 Pulse Rate 61 63 67 Pulse Rate [ None] Pulse Rate [ Right Arm] Respiratory 16 16 19 Rate Respiratory Rate [Right Arm ] Blood Pressure 132/76 132/76 132/76 Blood Pressure [Right Arm] O2 Sat by Pulse 97 94 97 Oximetry O2 Sat by Pulse Oximetry [ Right Arm] 03/11/18 03/11/18 03/12/18 23:40 23:51 00:00 Pulse Rate 62 65 65 Pulse Rate [ None] Pulse Rate [ 62 Right Arm] Respiratory 17 16 17 Rate Respiratory 14 Rate [Right Arm ] Blood Pressure 132/76 132/76 132/76 Blood Pressure 135/78 [Right Arm] O2 Sat by Pulse 95 97 97 Oximetry O2 Sat by Pulse 95 Oximetry [ Right Arm] 03/12/18 03/12/18 03/12/18 00:11 00:21 00:31 Pulse Rate 79 69 65 Pulse Rate [ None] Pulse Rate [ Right Arm] Respiratory 17 14 13 Rate Respiratory Rate [Right Arm ] Blood Pressure 135/78 135/78 135/78 Blood Pressure [Right Arm] O2 Sat by Pulse 97 95 96 Oximetry O2 Sat by Pulse Oximetry [ Right Arm] 03/12/18 03/12/18 03/12/18 00:41 00:51 01:00 Pulse Rate 67 64 64 Pulse Rate [ None] Pulse Rate [ 61 Right Arm] Respiratory 15 15 15 Rate Respiratory 15 Rate [Right Arm ] Blood Pressure 135/78 135/78 129/78 Blood Pressure 127/78 [Right Arm] O2 Sat by Pulse 96 93 94 Oximetry O2 Sat by Pulse 95 Oximetry [ Right Arm] 03/12/18 03/12/18 03/12/18 01:11 01:21 01:31 Pulse Rate 66 66 68 Pulse Rate [ None] Pulse Rate [ Right Arm] Respiratory 15 13 14 Rate Respiratory Rate [Right Arm ] Blood Pressure 129/78 129/78 129/78 Blood Pressure [Right Arm] O2 Sat by Pulse 93 93 96 Oximetry O2 Sat by Pulse Oximetry [ Right Arm] 03/12/18 03/12/18 03/12/18 01:41 01:51 02:00 Pulse Rate 85 63 60 Pulse Rate [ None] Pulse Rate [ 63 Right Arm] Respiratory 15 15 15 Rate Respiratory 14 Rate [Right Arm ] Blood Pressure 129/78 129/78 142/81 Blood Pressure 129/78 [Right Arm] O2 Sat by Pulse 97 96 97 Oximetry O2 Sat by Pulse 97 Oximetry [ Right Arm] 03/12/18 03/12/18 03/12/18 02:11 02:21 02:31 Pulse Rate 70 67 89 Pulse Rate [ None] Pulse Rate [ Right Arm] Respiratory 15 17 14 Rate Respiratory Rate [Right Arm ] Blood Pressure 142/81 142/81 142/81 Blood Pressure [Right Arm] O2 Sat by Pulse 97 99 98 Oximetry O2 Sat by Pulse Oximetry [ Right Arm] 03/12/18 03/12/18 03/12/18 02:41 02:51 03:00 Pulse Rate 59 L 55 L 54 L Pulse Rate [ None] Pulse Rate [ 62 Right Arm] Respiratory 15 14 13 Rate Respiratory 15 Rate [Right Arm ] Blood Pressure 142/81 142/81 130/86 Blood Pressure 130/86 [Right Arm] O2 Sat by Pulse 96 97 98 Oximetry O2 Sat by Pulse 98 Oximetry [ Right Arm] 03/12/18 03/12/18 03/12/18 03:11 03:21 03:31 Pulse Rate 68 68 77 Pulse Rate [ None] Pulse Rate [ Right Arm] Respiratory 16 17 13 Rate Respiratory Rate [Right Arm ] Blood Pressure 130/86 130/86 130/86 Blood Pressure [Right Arm] O2 Sat by Pulse 96 97 98 Oximetry O2 Sat by Pulse Oximetry [ Right Arm] 03/12/18 03/12/18 03/12/18 03:41 03:51 04:00 Pulse Rate 63 54 L 52 L Pulse Rate [ None] Pulse Rate [ 58 L Right Arm] Respiratory 19 14 15 Rate Respiratory 13 Rate [Right Arm ] Blood Pressure 130/86 130/86 120/77 Blood Pressure 120/77 [Right Arm] O2 Sat by Pulse 98 95 97 Oximetry O2 Sat by Pulse 95 Oximetry [ Right Arm] 03/12/18 03/12/18 03/12/18 04:11 04:21 04:31 Pulse Rate 52 L 57 L 64 Pulse Rate [ None] Pulse Rate [ Right Arm] Respiratory 14 13 14 Rate Respiratory Rate [Right Arm ] Blood Pressure 120/77 120/77 120/77 Blood Pressure [Right Arm] O2 Sat by Pulse 97 94 96 Oximetry O2 Sat by Pulse Oximetry [ Right Arm] 03/12/18 03/12/18 03/12/18 04:41 04:51 05:00 Pulse Rate 57 L 53 L 58 L Pulse Rate [ None] Pulse Rate [ 61 Right Arm] Respiratory 13 14 13 Rate Respiratory 14 Rate [Right Arm ] Blood Pressure 120/77 120/77 120/77 Blood Pressure 116/71 [Right Arm] O2 Sat by Pulse 95 99 97 Oximetry O2 Sat by Pulse 95 Oximetry [ Right Arm] 03/12/18 03/12/18 03/12/18 05:11 05:21 05:31 Pulse Rate 60 53 L 53 L Pulse Rate [ None] Pulse Rate [ Right Arm] Respiratory 14 15 11 L Rate Respiratory Rate [Right Arm ] Blood Pressure 116/71 116/71 116/71 Blood Pressure [Right Arm] O2 Sat by Pulse 94 94 97 Oximetry O2 Sat by Pulse Oximetry [ Right Arm] 03/12/18 03/12/18 03/12/18 05:41 05:51 06:00 Pulse Rate 58 L 61 56 L Pulse Rate [ None] Pulse Rate [ 61 Right Arm] Respiratory 11 L 11 L 13 Rate Respiratory 14 Rate [Right Arm ] Blood Pressure 116/71 116/71 125/71 Blood Pressure 125/71 [Right Arm] O2 Sat by Pulse 98 97 99 Oximetry O2 Sat by Pulse 98 Oximetry [ Right Arm] 03/12/18 03/12/18 03/12/18 06:11 06:21 06:31 Pulse Rate 58 L 60 57 L Pulse Rate [ None] Pulse Rate [ Right Arm] Respiratory 13 13 14 Rate Respiratory Rate [Right Arm ] Blood Pressure 125/71 125/71 125/71 Blood Pressure [Right Arm] O2 Sat by Pulse 97 97 99 Oximetry O2 Sat by Pulse Oximetry [ Right Arm] 03/12/18 03/12/18 03/12/18 06:41 06:51 07:00 Pulse Rate 55 L 50 L 55 L Pulse Rate [ None] Pulse Rate [ 61 Right Arm] Respiratory 14 16 13 Rate Respiratory 14 Rate [Right Arm ] Blood Pressure 125/71 125/71 122/76 Blood Pressure 122/76 [Right Arm] O2 Sat by Pulse 97 98 100 Oximetry O2 Sat by Pulse 98 Oximetry [ Right Arm] 03/12/18 03/12/18 03/12/18 07:11 07:21 07:31 Pulse Rate 52 L 58 L 53 L Pulse Rate [ None] Pulse Rate [ Right Arm] Respiratory 13 16 13 Rate Respiratory Rate [Right Arm ] Blood Pressure 122/76 122/76 122/76 Blood Pressure [Right Arm] O2 Sat by Pulse 100 98 100 Oximetry O2 Sat by Pulse Oximetry [ Right Arm] 03/12/18 03/12/18 07:41 08:34 Pulse Rate 57 L Pulse Rate [ None] Pulse Rate [ Right Arm] Respiratory 12 Rate Respiratory Rate [Right Arm ] Blood Pressure 122/76 Blood Pressure [Right Arm] O2 Sat by Pulse 99 96 Oximetry O2 Sat by Pulse Oximetry [ Right Arm] Constitutional: alert Eyes: non-icteric ENT: oropharynx moist Neck: supple, no lymphadenopathy, no JVD Ascultation: Bilateral: clear Percussion: Bilateral: not dull Tactile fremitus: Bilateral: normal Cardiovascular: regular rate and rhythm Gastrointestinal: normoactive bowel sounds, non-distended Integumentary: normal Extremities: no cyanosis, no edema Neurologic: normal mental status, pupils equal and round, other (RUE/RLL motor, perception normal. LUE/LLE hemoparesis, + pain, + Babinsky.Unchanged) CBC and BMP: 03/12/18 09:01 03/12/18 09:01 ABG, PT/INR, D-dimer: PT/INR, D-dimer PT 13.2 Sec. (12.2-14.9) 03/10/18 21:31 INR 0.95 (0.87-1.13) 03/10/18 21:31 Abnormal lab findings: Abnormal Labs 03/10/18 03/10/18 03/10/18 19:25 19:25 19:25 WBC 11.6 H Lymph % (Auto) Lymph # Seg Neutrophils % 80.0 H Seg Neutrophils # 9.1 H PT 10.7 L INR 0.74 L APTT > 240.0 H* Potassium 3.5 L Creatinine Glucose 124 H POC Glucose HDL Cholesterol 03/10/18 03/11/18 03/11/18 20:15 05:07 05:07 WBC Lymph % (Auto) 10.0 L Lymph # 0.9 L Seg Neutrophils % 89.1 H Seg Neutrophils # 8.1 H PT INR APTT Potassium Creatinine 0.6 L Glucose 138 H POC Glucose 133 H HDL Cholesterol 73 H 03/11/18 03/11/18 13:41 23:20 WBC Lymph % (Auto) Lymph # Seg Neutrophils % Seg Neutrophils # PT INR APTT Potassium Creatinine Glucose POC Glucose 109 H 118 H HDL Cholesterol
[2018-03-12 09:32] LABS: Hematocrit 39.1 % (30.3-42.9); Hemoglobin 12.8 gm/dl (10.1-14.3); Mean Corpuscular HGB Conc 33 % (30-34); Mean Corpuscular Hemoglobin 30 pg (28-32); Mean Corpuscular Volume 92 fl (79-97); Platelet Count 189 K/mm3 (140-440); Red Blood Count 4.27 M/mm3 (3.65-5.03); Red Cell Distribution Width 14.3 % (13.2-15.2)
[2018-03-12 09:40] LABS: BUN/Creatinine Ratio 21; Blood Urea Nitrogen 15 mg/dL (7-17); Calcium 8.7 mg/dL (8.4-10.2); Hemolysis Index 23
[2018-03-12] MEDS ORDERED: SODIUM BICARBONATE FEEDTUBE PRN (09:40)
[2018-03-12] MEDS ORDERED: PANCREAZE DR 10,500 UNIT FEEDTUBE PRN (09:40)
[2018-03-12] MEDS ORDERED: SIMPLE SYRUP FEEDTUBE PRN ×2 (09:40)
[2018-03-12] MEDS: ASPIRIN PR SCH (10:12)
[2018-03-12] MEDS: PEPCID IV SCH ×2 (10:12→22:59)
--- NOTE | 2018-03-12 10:57 | XRay Report ---
AP ABDOMEN: HISTORY: Dobbhoff tube placement. The Dobbhoff tube terminates in the distal stomach near the pylorus. The abdominal gas pattern is unremarkable. No masses or organomegaly is identified and there is no gross evidence of free air or fluid. No significant soft tissue calcifications are noted. IMPRESSION: Unremarkable abdomen. Dobbhoff tube as described.
--- NOTE | 2018-03-12 11:38 | Event Note ---
Date: 03/11/18 Noted MRI/MRA result and discussed with Dr. Antonio about the findings. Plan for medical Mx and serial imaging to assess to brain swelling and midline shift. Changed Iv fluid to NS, ordered for dobhoff for TF Updated and discussed plan of care with family and RN MRA brain: Cut off of the right middle cerebral artery at the level of the M1 segment concerning for occlusion. MRI brain: 1. Acute right frontotemporal infarct also involving the right basal ganglia and caudate nucleus. Minimal right to left midline shift of approximately 2 millimeters. 2. Probable occlusion of the right MCA. 3. Mild chronic findings of microvascular ischemic disease.
--- NOTE | 2018-03-12 11:41 | Progress Note ---
Assessment and Plan Acute right MCA CVA, s/p TPA - cont to Monitor at ICU - Cont to do neuro checks, gentle IV fluid for hydration - follow echo result, consulted neurology - Consulted physical, occupational and speech therapy, NPO for now - Repeat CT post-tPA didnot show any brain hemorrhage - cont on aspirin MS, statin Allergic reaction possible to dye versus TPA - cont steroids, Benadryl as needed Hypertension, now normotensive - monitor BP, as needed hydralazine Leukocytosis, likely for acute CVA h/o fall with left hip pain, ordered XRY for possible fracture DVT prophylaxis, SCD for now Radiological data: MRA brain: Cut off of the right middle cerebral artery at the level of the M1 segment concerning for occlusion. MRI brain: 1. Acute right frontotemporal infarct also involving the right basal ganglia and caudate nucleus. Minimal right to left midline shift of approximately 2 millimeters. 2. Probable occlusion of the right MCA. 3. Mild chronic findings of microvascular ischemic disease. Physical exam: General appearance: Present: no acute distress, well-nourished - EENT Eyes: no scleral icterus, no conjunctival injection ENT: hearing intact, clear oral mucosa Ears: bilateral: normal - Neck Neck: supple, normal ROM - Respiratory Respiratory effort: normal Respiratory: bilateral: CTA - Cardiovascular Rhythm: regular Heart Sounds: Present: S1 & S2. Absent: gallop, rub Extremities: pulses intact, No edema, normal color - Gastrointestinal General gastrointestinal: Present: soft, non-tender, non-distended, normal bowel sounds - Integumentary Integumentary: clear, warm, dry - Musculoskeletal Musculoskeletal: left sided weakness - Neurologic Neurologic: no gait normal - Psychiatric Psychiatric: appropriate mood/affect, cooperative Subjective Date of service: 03/12/18 Principal diagnosis: stroke Interval history: Patient seen and examined Left sided weakness with aphasia Denies any chest pain or SOB Objective - Constitutional Vitals: Vital Signs - 12hr 03/11/18 03/11/18 03/12/18 23:40 23:51 00:00 Pulse Rate 62 65 65 Pulse Rate [ 62 Right Arm] Respiratory 17 16 17 Rate Respiratory 14 Rate [Right Arm ] Blood Pressure 132/76 132/76 132/76 Blood Pressure 135/78 [Right Arm] O2 Sat by Pulse 95 97 97 Oximetry O2 Sat by Pulse 95 Oximetry [ Right Arm] 03/12/18 03/12/18 03/12/18 00:11 00:21 00:31 Pulse Rate 79 69 65 Pulse Rate [ Right Arm] Respiratory 17 14 13 Rate Respiratory Rate [Right Arm ] Blood Pressure 135/78 135/78 135/78 Blood Pressure [Right Arm] O2 Sat by Pulse 97 95 96 Oximetry O2 Sat by Pulse Oximetry [ Right Arm] 03/12/18 03/12/18 03/12/18 00:41 00:51 01:00 Pulse Rate 67 64 64 Pulse Rate [ 61 Right Arm] Respiratory 15 15 15 Rate Respiratory 15 Rate [Right Arm ] Blood Pressure 135/78 135/78 129/78 Blood Pressure 127/78 [Right Arm] O2 Sat by Pulse 96 93 94 Oximetry O2 Sat by Pulse 95 Oximetry [ Right Arm] 03/12/18 03/12/18 03/12/18 01:11 01:21 01:31 Pulse Rate 66 66 68 Pulse Rate [ Right Arm] Respiratory 15 13 14 Rate Respiratory Rate [Right Arm ] Blood Pressure 129/78 129/78 129/78 Blood Pressure [Right Arm] O2 Sat by Pulse 93 93 96 Oximetry O2 Sat by Pulse Oximetry [ Right Arm] 03/12/18 03/12/18 03/12/18 01:41 01:51 02:00 Pulse Rate 85 63 60 Pulse Rate [ 63 Right Arm] Respiratory 15 15 15 Rate Respiratory 14 Rate [Right Arm ] Blood Pressure 129/78 129/78 142/81 Blood Pressure 129/78 [Right Arm] O2 Sat by Pulse 97 96 97 Oximetry O2 Sat by Pulse 97 Oximetry [ Right Arm] 03/12/18 03/12/18 03/12/18 02:11 02:21 02:31 Pulse Rate 70 67 89 Pulse Rate [ Right Arm] Respiratory 15 17 14 Rate Respiratory Rate [Right Arm ] Blood Pressure 142/81 142/81 142/81 Blood Pressure [Right Arm] O2 Sat by Pulse 97 99 98 Oximetry O2 Sat by Pulse Oximetry [ Right Arm] 03/12/18 03/12/18 03/12/18 02:41 02:51 03:00 Pulse Rate 59 L 55 L 54 L Pulse Rate [ 62 Right Arm] Respiratory 15 14 13 Rate Respiratory 15 Rate [Right Arm ] Blood Pressure 142/81 142/81 130/86 Blood Pressure 130/86 [Right Arm] O2 Sat by Pulse 96 97 98 Oximetry O2 Sat by Pulse 98 Oximetry [ Right Arm] 03/12/18 03/12/18 03/12/18 03:11 03:21 03:31 Pulse Rate 68 68 77 Pulse Rate [ Right Arm] Respiratory 16 17 13 Rate Respiratory Rate [Right Arm ] Blood Pressure 130/86 130/86 130/86 Blood Pressure [Right Arm] O2 Sat by Pulse 96 97 98 Oximetry O2 Sat by Pulse Oximetry [ Right Arm] 03/12/18 03/12/18 03/12/18 03:41 03:51 04:00 Pulse Rate 63 54 L 52 L Pulse Rate [ 58 L Right Arm] Respiratory 19 14 15 Rate Respiratory 13 Rate [Right Arm ] Blood Pressure 130/86 130/86 120/77 Blood Pressure 120/77 [Right Arm] O2 Sat by Pulse 98 95 97 Oximetry O2 Sat by Pulse 95 Oximetry [ Right Arm] 03/12/18 03/12/18 03/12/18 04:11 04:21 04:31 Pulse Rate 52 L 57 L 64 Pulse Rate [ Right Arm] Respiratory 14 13 14 Rate Respiratory Rate [Right Arm ] Blood Pressure 120/77 120/77 120/77 Blood Pressure [Right Arm] O2 Sat by Pulse 97 94 96 Oximetry O2 Sat by Pulse Oximetry [ Right Arm] 03/12/18 03/12/18 03/12/18 04:41 04:51 05:00 Pulse Rate 57 L 53 L 58 L Pulse Rate [ 61 Right Arm] Respiratory 13 14 13 Rate Respiratory 14 Rate [Right Arm ] Blood Pressure 120/77 120/77 120/77 Blood Pressure 116/71 [Right Arm] O2 Sat by Pulse 95 99 97 Oximetry O2 Sat by Pulse 95 Oximetry [ Right Arm] 03/12/18 03/12/18 03/12/18 05:11 05:21 05:31 Pulse Rate 60 53 L 53 L Pulse Rate [ Right Arm] Respiratory 14 15 11 L Rate Respiratory Rate [Right Arm ] Blood Pressure 116/71 116/71 116/71 Blood Pressure [Right Arm] O2 Sat by Pulse 94 94 97 Oximetry O2 Sat by Pulse Oximetry [ Right Arm] 03/12/18 03/12/18 03/12/18 05:41 05:51 06:00 Pulse Rate 58 L 61 56 L Pulse Rate [ 61 Right Arm] Respiratory 11 L 11 L 13 Rate Respiratory 14 Rate [Right Arm ] Blood Pressure 116/71 116/71 125/71 Blood Pressure 125/71 [Right Arm] O2 Sat by Pulse 98 97 99 Oximetry O2 Sat by Pulse 98 Oximetry [ Right Arm] 03/12/18 03/12/18 03/12/18 06:11 06:21 06:31 Pulse Rate 58 L 60 57 L Pulse Rate [ Right Arm] Respiratory 13 13 14 Rate Respiratory Rate [Right Arm ] Blood Pressure 125/71 125/71 125/71 Blood Pressure [Right Arm] O2 Sat by Pulse 97 97 99 Oximetry O2 Sat by Pulse Oximetry [ Right Arm] 03/12/18 03/12/18 03/12/18 06:41 06:51 07:00 Pulse Rate 55 L 50 L 55 L Pulse Rate [ 61 Right Arm] Respiratory 14 16 13 Rate Respiratory 14 Rate [Right Arm ] Blood Pressure 125/71 125/71 122/76 Blood Pressure 122/76 [Right Arm] O2 Sat by Pulse 97 98 100 Oximetry O2 Sat by Pulse 98 Oximetry [ Right Arm] 03/12/18 03/12/18 03/12/18 07:11 07:21 07:31 Pulse Rate 52 L 58 L 53 L Pulse Rate [ Right Arm] Respiratory 13 16 13 Rate Respiratory Rate [Right Arm ] Blood Pressure 122/76 122/76 122/76 Blood Pressure [Right Arm] O2 Sat by Pulse 100 98 100 Oximetry O2 Sat by Pulse Oximetry [ Right Arm] 03/12/18 03/12/18 03/12/18 07:41 07:51 08:00 Pulse Rate 57 L 57 L 55 L Pulse Rate [ Right Arm] Respiratory 12 15 13 Rate Respiratory Rate [Right Arm ] Blood Pressure 122/76 122/76 122/76 Blood Pressure [Right Arm] O2 Sat by Pulse 99 99 98 Oximetry O2 Sat by Pulse Oximetry [ Right Arm] 03/12/18 03/12/18 03/12/18 08:11 08:21 08:31 Pulse Rate 58 L 77 65 Pulse Rate [ Right Arm] Respiratory 14 22 15 Rate Respiratory Rate [Right Arm ] Blood Pressure 135/89 135/89 135/89 Blood Pressure [Right Arm] O2 Sat by Pulse 99 98 95 Oximetry O2 Sat by Pulse Oximetry [ Right Arm] 03/12/18 03/12/18 03/12/18 08:34 08:41 08:51 Pulse Rate 75 83 Pulse Rate [ Right Arm] Respiratory 15 14 Rate Respiratory Rate [Right Arm ] Blood Pressure 135/89 135/89 Blood Pressure [Right Arm] O2 Sat by Pulse 96 97 99 Oximetry O2 Sat by Pulse Oximetry [ Right Arm] 03/12/18 03/12/18 03/12/18 09:00 09:11 09:21 Pulse Rate 77 76 64 Pulse Rate [ Right Arm] Respiratory 18 20 17 Rate Respiratory Rate [Right Arm ] Blood Pressure 128/75 128/75 128/75 Blood Pressure [Right Arm] O2 Sat by Pulse 98 96 95 Oximetry O2 Sat by Pulse Oximetry [ Right Arm] 03/12/18 09:31 Pulse Rate 65 Pulse Rate [ Right Arm] Respiratory 14 Rate Respiratory Rate [Right Arm ] Blood Pressure 128/75 Blood Pressure [Right Arm] O2 Sat by Pulse 99 Oximetry O2 Sat by Pulse Oximetry [ Right Arm] - Labs CBC & Chem 7: 03/12/18 09:01 03/12/18 09:01 Labs: Abnormal lab results 03/11/18 03/11/18 03/12/18 Range/Units 13:41 23:20 09:01 WBC 14.7 H (4.5-11.0) K/mm3 Chloride (98-107) mmol/L POC Glucose 109 H 118 H (70-105) 03/12/18 Range/Units 09:01 WBC (4.5-11.0) K/mm3 Chloride 108.0 H (98-107) mmol/L POC Glucose (70-105)
--- NOTE | 2018-03-12 12:13 | XRay Report ---
LEFT FEMUR: HISTORY: Rule out fracture 2 nonstandard views of the femur demonstrate normal mineralization and contours for this patient's age. No destructive changes are noted and the adjacent soft tissues are normal. IMPRESSION: Normal left femur.
--- NOTE | 2018-03-12 12:13 | XRay Report ---
LEFT HIP, 2 views: History: Rule out fracture The bony architecture is intact without evidence of fracture or dislocation. No significant soft tissue abnormality is seen. IMPRESSION: Normal left hip.
[2018-03-12] MEDS: TYLENOL PO PRN ×2 (18:06→22:58)
[2018-03-12] MEDS: SODIUM CHLORIDE FLUSH SYRINGE 10 ML IV SCH ×2 (18:54→22:59)
[2018-03-13] MEDS: NACL 0.9% 1000 ML 1,000 ML IV SCH ×3 (01:56→22:16)
--- NOTE | 2018-03-13 02:36 | Physician Progress Note ---
SUBJECTIVE: The patient is stable or even showing some improvement. She is more awake today, more responsive, and interactive. She wears a smile on her face. She has fair affective responses very good. An NG feeding tube was inserted. We stopped the Solu-Medrol. She is now on normal saline. OBJECTIVE EXAMINATION: VITAL SIGNS: Stable. NEUROLOGIC: She is awake, looking, alert, smiling. She has no visual field cut. She has a dense left hemiplegia, however, on the left there is some movement on the left lower extremity, at least about 2/5. She has Babinski on the left. ASSESSMENT: The patient has a cerebrovascular accident. This is a branch occlusion of the right hemisphere, rather large from the MRI. The patient is clinically stable, very-very slight improvement. PLAN: Continue the same medication. Bedside physical therapy and speech therapy. REMARKS: The place of a thrombectomy was reviewed on this patient. This procedure was done on the basis of the lesion on the MRI, which was done at least almost within 24 hours from the ____ is a rather big, of appearing at least two-thirds of the right hemisphere. This will be very risky with the procedure. JOB# [id number] VALERIE/MEG
[2018-03-13] MEDS: HumuLIN R SUB-Q SCH ×2 (06:14→12:07)
--- NOTE | 2018-03-13 08:58 | Progress Note ---
Assessment and Plan Stroke, s/p TPA - aphasia, LT hemiparesis. CT's negative Low grade fever. No chest changes HTN TPA swelling/reaction. Resolved. Off Solu-medrol Recommendations f/u neuro recommendations Monitor x fever, update CXR and cultures if noted Incentive spirometry Serial neuro checks per protocol. Monitor for edema changes Monitor BP,MAP.Avoid hypotension Feeding tube in Aspiration precautions, elevate HOB Speech therapy check Physical therapy Discussed with patient,family in detail. All questions answered CCT - 31 min of face to face evaluation and coordination of care Subjective Date of service: 03/13/18 Principal diagnosis: stroke Interval history: No cough. No events overnight Objective Vital Signs - 12hr 03/12/18 03/12/18 03/12/18 21:00 22:00 22:58 Temperature Pulse Rate 86 58 L Respiratory 22 16 14 Rate Blood Pressure 122/77 129/76 O2 Sat by Pulse 94 95 Oximetry 03/12/18 03/12/18 03/13/18 23:00 23:53 00:00 Temperature 99.1 F Pulse Rate 84 81 Respiratory 14 19 Rate Blood Pressure 143/96 124/98 O2 Sat by Pulse 95 94 Oximetry 03/13/18 03/13/18 03/13/18 01:00 02:00 03:00 Temperature Pulse Rate 62 60 57 L Respiratory 18 18 16 Rate Blood Pressure 131/77 131/77 127/73 O2 Sat by Pulse 92 95 95 Oximetry 03/13/18 03/13/18 03/13/18 03:46 04:00 05:00 Temperature 99.7 F H Pulse Rate 61 64 Respiratory 15 17 Rate Blood Pressure 138/83 129/73 O2 Sat by Pulse 95 93 Oximetry 03/13/18 03/13/18 03/13/18 06:00 08:00 08:54 Temperature 98.1 F Pulse Rate 67 Respiratory 17 Rate Blood Pressure 131/76 O2 Sat by Pulse 93 95 Oximetry Constitutional: alert Eyes: non-icteric ENT: oropharynx moist Neck: supple, no lymphadenopathy, no JVD Ascultation: Bilateral: clear, diminished breath sounds Percussion: Bilateral: not dull Tactile fremitus: Bilateral: normal Cardiovascular: regular rate and rhythm Gastrointestinal: normoactive bowel sounds, non-distended Integumentary: normal Extremities: no cyanosis, no edema Neurologic: normal mental status, pupils equal and round, other (RUE/RLL motor, perception normal. LUE/LLE hemoparesis, + pain, + Babinsky.Unchanged) CBC and BMP: 03/12/18 09:01 03/12/18 09:01 ABG, PT/INR, D-dimer: PT/INR, D-dimer PT 13.2 Sec. (12.2-14.9) 03/10/18 21:31 INR 0.95 (0.87-1.13) 03/10/18 21:31 Abnormal lab findings: Abnormal Labs 03/10/18 03/10/18 03/10/18 19:25 19:25 19:25 WBC 11.6 H Lymph % (Auto) Lymph # Seg Neutrophils % 80.0 H Seg Neutrophils # 9.1 H PT 10.7 L INR 0.74 L APTT > 240.0 H* Potassium 3.5 L Chloride Creatinine Glucose 124 H POC Glucose HDL Cholesterol 03/10/18 03/11/18 03/11/18 20:15 05:07 05:07 WBC Lymph % (Auto) 10.0 L Lymph # 0.9 L Seg Neutrophils % 89.1 H Seg Neutrophils # 8.1 H PT INR APTT Potassium Chloride Creatinine 0.6 L Glucose 138 H POC Glucose 133 H HDL Cholesterol 73 H 03/11/18 03/11/18 03/12/18 13:41 23:20 09:01 WBC 14.7 H Lymph % (Auto) Lymph # Seg Neutrophils % Seg Neutrophils # PT INR APTT Potassium Chloride Creatinine Glucose POC Glucose 109 H 118 H HDL Cholesterol 03/12/18 09:01 WBC Lymph % (Auto) Lymph # Seg Neutrophils % Seg Neutrophils # PT INR APTT Potassium Chloride 108.0 H Creatinine Glucose POC Glucose HDL Cholesterol
[2018-03-13] MEDS: ASPIRIN PO SCH (11:40)
[2018-03-13] MEDS: SODIUM CHLORIDE FLUSH SYRINGE 10 ML IV SCH ×2 (11:40→22:16)
[2018-03-13] MEDS: PEPCID PO SCH ×2 (11:40→22:15)
--- NOTE | 2018-03-13 12:32 | Progress Note ---
Assessment and Plan Acute right MCA CVA, s/p TPA - cont to Monitor at ICU - Cont to do neuro checks, gentle IV fluid for hydration - follow echo result, consulted neurology - Consulted physical, occupational and speech therapy, WILL NEED ACUTE REHAB - NPO for now as failed swallow eval, cont TF - Repeat CT post-tPA didnot show any brain hemorrhage - cont on aspirin [place], statin Allergic reaction possible to dye versus TPA - treated with steroids, Benadryl as needed Hypertension, now normotensive - monitor BP, as needed hydralazine Leukocytosis, likely for acute CVA h/o fall with left hip pain, ordered XRY for possible fracture DVT prophylaxis, SCD for now Radiological data: MRA brain: Cut off of the right middle cerebral artery at the level of the M1 segment concerning for occlusion. MRI brain: 1. Acute right frontotemporal infarct also involving the right basal ganglia and caudate nucleus. Minimal right to left midline shift of approximately 2 millimeters. 2. Probable occlusion of the right MCA. 3. Mild chronic findings of microvascular ischemic disease. Physical exam: General appearance: Present: no acute distress, well-nourished - EENT Eyes: no scleral icterus, no conjunctival injection ENT: hearing intact, clear oral mucosa Ears: bilateral: normal - Neck Neck: supple, normal ROM - Respiratory Respiratory effort: normal Respiratory: bilateral: CTA - Cardiovascular Rhythm: regular Heart Sounds: Present: S1 & S2. Absent: gallop, rub Extremities: pulses intact, No edema, normal color - Gastrointestinal General gastrointestinal: Present: soft, non-tender, non-distended, normal bowel sounds - Integumentary Integumentary: clear, warm, dry - Musculoskeletal Musculoskeletal: left sided weakness - Neurologic Neurologic: no gait normal - Psychiatric Psychiatric: appropriate mood/affect, cooperative Subjective Date of service: 03/13/18 Principal diagnosis: stroke Interval history: Patient seen and examined Left sided weakness with aphasia Denies any chest pain or SOB failed swallow study today Objective - Constitutional Vitals: Vital Signs - 12hr 03/13/18 03/13/18 03/13/18 01:00 02:00 03:00 Temperature Pulse Rate 62 60 57 L Pulse Rate [ From Monitor] Respiratory 18 18 16 Rate Blood Pressure 131/77 131/77 127/73 O2 Sat by Pulse 92 95 95 Oximetry 03/13/18 03/13/18 03/13/18 03:46 04:00 05:00 Temperature 99.7 F H Pulse Rate 61 64 Pulse Rate [ From Monitor] Respiratory 15 17 Rate Blood Pressure 138/83 129/73 O2 Sat by Pulse 95 93 Oximetry 03/13/18 03/13/18 03/13/18 06:00 07:01 08:00 Temperature 98.1 F Pulse Rate 67 85 64 Pulse Rate [ 64 From Monitor] Respiratory 17 19 15 Rate Blood Pressure 131/76 163/99 139/80 O2 Sat by Pulse 93 94 98 Oximetry 03/13/18 03/13/18 03/13/18 08:54 09:00 10:00 Temperature Pulse Rate 71 81 Pulse Rate [ From Monitor] Respiratory 20 12 Rate Blood Pressure 126/80 145/89 O2 Sat by Pulse 95 94 98 Oximetry 03/13/18 03/13/18 11:00 12:00 Temperature Pulse Rate 84 66 Pulse Rate [ 66 From Monitor] Respiratory 16 20 Rate Blood Pressure 145/89 131/72 O2 Sat by Pulse 96 95 Oximetry - Labs CBC & Chem 7: 03/13/18 12:07 03/13/18 12:07 Labs: Abnormal lab results 03/13/18 Range/Units 11:54 POC Glucose 119 H (70-105)
[2018-03-13 12:37] LABS: Hematocrit 39.1 % (30.3-42.9); Mean Corpuscular HGB Conc 33 % (30-34); Mean Corpuscular Hemoglobin 30 pg (28-32); Mean Corpuscular Volume 91 fl (79-97); Platelet Count 178 K/mm3 (140-440); Red Blood Count 4.28 M/mm3 (3.65-5.03); Red Cell Distribution Width 13.7 % (13.2-15.2)
[2018-03-13 12:56] LABS: BUN/Creatinine Ratio 14; Blood Urea Nitrogen 11 mg/dL (7-17); Calcium 8.6 mg/dL (8.4-10.2); Hemolysis Index 8
--- NOTE | 2018-03-14 00:49 | Physician Progress Note ---
NEUROLOGY PROGRESS REPORT SUBJECTIVE: The patient is doing very, very well. She is now transferred to the regular floor. She has no specific complaint. She has an NG feeding tube. She failed the swallowing evaluation. Therefore, we need to have them redo swallowing eval. Otherwise, there has been no concern. OBJECTIVE EXAMINATION: VITAL SIGNS: Stable. GENERAL: The patient is awake, alert. Has an effective response. She has the same left facial weakness, dense left hemiplegia. No gaze preference. No homonymous hemianopsia. She is aphasic. Remember that the patient is left handed. EEG showed disturbance in the right hemisphere, but there is some isolated spikes on the left. ASSESSMENT: Cerebrovascular accident, branch occlusion of the right middle cerebral artery. She had a rather large stroke, but sparing primarily the division, but affected the expressive speech center. The patient is neurologically stable and showed significant improvement. PLAN: 1. Physical therapy has evaluated the speech therapy has started. 2. We will do video swallowing evaluation. 3. We will repeat the EEG. Later plan is rehabilitation. PROGNOSIS: Still fair, but significantly improved. ADDENDUM The patient will be started now on antiplatelet. She was initially started on aspirin, but I believe we will probably need to give her 2 antiplatelets. I plan to add Plavix or clopidogrel 75 mg per day for better antiplatelet function; however, we still have to watch for development of hemorrhage, which I do not expect to happen. JOB# [id number] VALERIE/MEG
--- NOTE | 2018-03-14 00:53 | Physician Progress Note ---
ADDENDUM The patient will be started now on antiplatelet. She was initially started on aspirin, but I believe we will probably need to give her 2 antiplatelets. I plan to add Plavix or clopidogrel 75 mg per day for better antiplatelet function; however, we still have to watch for development of hemorrhage, which I do not expect to happen. JOB# [id number] VALERIE/MEG
[2018-03-14] MEDS: HumuLIN R SUB-Q SCH ×3 (06:51→13:05)
--- NOTE | 2018-03-14 08:55 | Progress Note ---
Assessment and Plan Stroke, s/p TPA - aphasia, LT hemiparesis. Neurologically, no signs of deterioration. Appears awake and following all minus instructions and questions. EEG noted Low grade fever. Resolved. On IS HTN TPA swelling/reaction. Resolved. Off Solu-medrol Recommendations Monitor x fever, update CXR and cultures if noted Continue with Incentive spirometry, discussed with respiratory therapist and patient family Aspiration precautions, elevate HOB Speech therapy follow-up. On Dobbhoff tube. Physical therapy Discussed with patient,family in detail. All questions answered. We'll continue to follow up for the moment and eventually sign off if no active respiratory issues Subjective Date of service: 03/14/18 Principal diagnosis: stroke Interval history: No events overnight. Reportedly she had a good night sleep. No fever or chest congestion. at the bedside Objective Vital Signs - 12hr 03/14/18 03/14/18 03/14/18 00:02 00:14 02:00 Temperature 98.3 F Pulse Rate 75 67 66 Respiratory 20 Rate Blood Pressure 133/68 Blood Pressure 133/68 [Right] O2 Sat by Pulse 96 97 Oximetry 03/14/18 03/14/18 04:57 08:13 Temperature 97.2 F L 97.9 F Pulse Rate 66 Respiratory 18 20 Rate Blood Pressure 151/80 141/81 Blood Pressure [Right] O2 Sat by Pulse 99 Oximetry Constitutional: alert Eyes: non-icteric ENT: oropharynx moist Neck: supple, no lymphadenopathy, no JVD Ascultation: Bilateral: clear, diminished breath sounds Percussion: Bilateral: not dull Tactile fremitus: Bilateral: normal Cardiovascular: regular rate and rhythm Gastrointestinal: normoactive bowel sounds, non-distended Integumentary: normal Extremities: no cyanosis, no edema Neurologic: normal mental status, pupils equal and round, other (RUE/RLL motor, perception normal. LUE/LLE hemoparesis, + pain, + Babinsky.Unchanged) CBC and BMP: 03/13/18 12:07 03/13/18 12:07 ABG, PT/INR, D-dimer: PT/INR, D-dimer PT 13.2 Sec. (12.2-14.9) 03/10/18 21:31 INR 0.95 (0.87-1.13) 03/10/18 21:31 Abnormal lab findings: Abnormal Labs 03/10/18 03/10/18 03/10/18 19:25 19:25 19:25 WBC 11.6 H Lymph % (Auto) Lymph # Seg Neutrophils % 80.0 H Seg Neutrophils # 9.1 H PT 10.7 L INR 0.74 L APTT > 240.0 H* Potassium 3.5 L Chloride Creatinine Glucose 124 H POC Glucose HDL Cholesterol 03/10/18 03/11/18 03/11/18 20:15 05:07 05:07 WBC Lymph % (Auto) 10.0 L Lymph # 0.9 L Seg Neutrophils % 89.1 H Seg Neutrophils # 8.1 H PT INR APTT Potassium Chloride Creatinine 0.6 L Glucose 138 H POC Glucose 133 H HDL Cholesterol 73 H 03/11/18 03/11/18 03/12/18 13:41 23:20 09:01 WBC 14.7 H Lymph % (Auto) Lymph # Seg Neutrophils % Seg Neutrophils # PT INR APTT Potassium Chloride Creatinine Glucose POC Glucose 109 H 118 H HDL Cholesterol 03/12/18 03/13/18 03/13/18 09:01 11:54 12:07 WBC Lymph % (Auto) Lymph # Seg Neutrophils % Seg Neutrophils # PT INR APTT Potassium Chloride 108.0 H Creatinine Glucose 110 H POC Glucose 119 H HDL Cholesterol
[2018-03-14] MEDS: PEPCID PO SCH ×2 (09:55→21:42)
[2018-03-14] MEDS: ASPIRIN PO SCH (09:55)
[2018-03-14] MEDS: SODIUM CHLORIDE FLUSH SYRINGE 10 ML IV SCH ×2 (09:57→21:44)
--- NOTE | 2018-03-14 11:19 | Fluoroscopy Report ---
MODIFIED BARIUM SWALLOW History: dysphagia. Findings: Video radiography was provided by the radiologist for speech therapy to assess the swallowing mechanism. 1 fluoroscopic image was captured. Impression: Successful modified barium swallow.
[2018-03-14] MEDS: NACL 0.9% 1000 ML 1,000 ML IV SCH (12:57)
[2018-03-14] MEDS ORDERED: SODIUM BICARBONATE FEEDTUBE PRN ×2 (13:58→14:05)
[2018-03-14] MEDS ORDERED: SIMPLE SYRUP FEEDTUBE PRN ×4 (13:58→14:05)
[2018-03-14] MEDS ORDERED: PANCREAZE DR 10,500 UNIT FEEDTUBE PRN ×2 (13:58→14:05)
--- NOTE | 2018-03-14 14:34 | Progress Note ---
Assessment and Plan Acute right MCA CVA, s/p TPA - cont to Monitor at ICU - Cont to do neuro checks, gentle IV fluid for hydration - follow echo result, consulted neurology - Consulted physical, occupational and speech therapy, WILL NEED ACUTE REHAB - barium swallow eval showed no aspiration, start on pureed diet along with TF ( stop TF by tomorrow if patient can do enough po intake) - Repeat CT post-tPA didnot show any brain hemorrhage - repeat EEG for possible underlying seizure? stroke induced - cont on aspirin [place], statin Allergic reaction possible to dye versus TPA - treated with steroids, Benadryl as needed Hypertension, now normotensive - monitor BP, as needed hydralazine Leukocytosis, likely for acute CVA h/o fall with left hip pain, ordered XRY for possible fracture - normal findings DVT prophylaxis, SCD for now Radiological data: MRA brain: Cut off of the right middle cerebral artery at the level of the M1 segment concerning for occlusion. MRI brain: 1. Acute right frontotemporal infarct also involving the right basal ganglia and caudate nucleus. Minimal right to left midline shift of approximately 2 millimeters. 2. Probable occlusion of the right MCA. 3. Mild chronic findings of microvascular ischemic disease. Physical exam: General appearance: Present: no acute distress, well-nourished - EENT Eyes: no scleral icterus, no conjunctival injection ENT: hearing intact, clear oral mucosa Ears: bilateral: normal - Neck Neck: supple, normal ROM - Respiratory Respiratory effort: normal Respiratory: bilateral: CTA - Cardiovascular Rhythm: regular Heart Sounds: Present: S1 & S2. Absent: gallop, rub Extremities: pulses intact, No edema, normal color - Gastrointestinal General gastrointestinal: Present: soft, non-tender, non-distended, normal bowel sounds - Integumentary Integumentary: clear, warm, dry - Musculoskeletal Musculoskeletal: left sided weakness - Neurologic Neurologic: no gait normal - Psychiatric Psychiatric: appropriate mood/affect, cooperative Subjective Date of service: 03/14/18 Principal diagnosis: stroke Interval history: Patient seen and examined Left sided weakness with aphasia Denies any chest pain or SOB s/p barium swallow study today Objective - Constitutional Vitals: Vital Signs - 12hr 03/14/18 03/14/18 03/14/18 04:57 08:13 12:23 Temperature 97.2 F L 97.9 F 97.9 F Pulse Rate 66 Respiratory 18 20 20 Rate Blood Pressure 151/80 141/81 143/91 O2 Sat by Pulse 99 Oximetry 03/14/18 03/14/18 13:23 14:07 Temperature Pulse Rate 69 Respiratory Rate Blood Pressure O2 Sat by Pulse 97 97 Oximetry - Labs CBC & Chem 7: 03/13/18 12:07 03/13/18 12:07
[2018-03-14] MEDS: PLAVIX PO SCH (17:04)
[2018-03-14] MEDS: LOVENOX SUB-Q SCH (21:40)
[2018-03-14] MEDS: TYLENOL PO PRN (21:43)
--- NOTE | 2018-03-15 02:25 | Physician Progress Note ---
NEUROLOGIC PROGRESS NOTE SUBJECTIVE: The patient is neurologically doing very well. She is very much awake, alert, communicating, but could not talk. She continued to have the left-sided paralysis. She had a successful fluoroscopic barium swallow from the report. OBJECTIVE: NEUROLOGIC: Awake, alert, but aphasic. Has comprehension. She is paralyzed on the left side of the arm and the leg. The IV site is somewhat swollen. This needs to be checked. ASSESSMENT: Cerebrovascular accident, post-TPA. Right hemispheric. PLAN: Check the IV site on the left arm, which is swollen. Looking for rehabilitation. Prognosis improved, but still has significant functional deficit. JOB# [id number] VALERIE/MEG
[2018-03-15] MEDS: NACL 0.9% 1000 ML 1,000 ML IV SCH (05:47)
[2018-03-15 06:21] LABS: Basophils % (Auto) 0.2 % (0.0-1.8); Eosinophils # (Auto) 0.2 K/mm3 (0.0-0.4); Eosinophils % (Auto) 1.9 % (0.0-4.3); Hematocrit 37.1 % (30.3-42.9); Hemoglobin 12.7 gm/dl (10.1-14.3); Lymphocytes # (Auto) 2.3 K/mm3 (1.2-5.4); Mean Corpuscular HGB Conc 34 % (30-34); Mean Corpuscular Hemoglobin 31 pg (28-32); Mean Corpuscular Volume 90 fl (79-97); Monocytes # (Auto) 0.6 K/mm3 (0.0-0.8); Monocytes % (Auto) 7.4 % (0.0-7.3); Platelet Count 177 K/mm3 (140-440); Red Blood Count 4.14 M/mm3 (3.65-5.03)
[2018-03-15] MEDS: HumuLIN R SUB-Q SCH ×4 (06:46→21:02)
[2018-03-15 07:03] LABS: BUN/Creatinine Ratio 20; Blood Urea Nitrogen 12 mg/dL (7-17); Calcium 8.9 mg/dL (8.4-10.2); Hemolysis Index 2
[2018-03-15] MEDS: HALFPRIN EC PO SCH (09:53)
[2018-03-15] MEDS: SODIUM CHLORIDE FLUSH SYRINGE 10 ML IV SCH ×2 (09:53→22:02)
[2018-03-15] MEDS: PLAVIX PO SCH (09:53)
[2018-03-15] MEDS: PEPCID PO SCH ×2 (09:53→22:02)
--- NOTE | 2018-03-15 10:54 | Progress Note ---
Assessment and Plan Stroke, s/p TPA - aphasia, LT hemiparesis. Neurologically, no signs of deterioration. Appears awake and following all minus instructions and questions. EEG noted Low grade fever. Resolved. On IS HTN TPA swelling/reaction. Resolved. Off Solu-medrol Recommendations Continue with Incentive spirometry, discussed with respiratory therapist and patient family Aspiration precautions, elevate HOB Speech therapy follow-up. On Dobbhoff tube. Physical therapy Discussed with patient,family in detail. All questions answered. We'll see back on Sunday. Subjective Date of service: 03/15/18 Principal diagnosis: stroke Interval history: Patient reportedly had a good night. No events overnight. No respiratory complaints Objective Vital Signs - 12hr 03/15/18 03/15/18 03/15/18 03:00 04:45 08:14 Temperature 98.0 F 98.0 F Pulse Rate 60 79 72 Respiratory 22 20 Rate Blood Pressure 131/76 129/92 O2 Sat by Pulse 98 98 Oximetry Constitutional: alert Eyes: non-icteric ENT: oropharynx moist Neck: supple, no lymphadenopathy, no JVD Ascultation: Bilateral: clear, diminished breath sounds Percussion: Bilateral: not dull Tactile fremitus: Bilateral: normal Cardiovascular: regular rate and rhythm Gastrointestinal: normoactive bowel sounds, non-distended Integumentary: normal Extremities: no cyanosis, no edema Neurologic: normal mental status, pupils equal and round, other (RUE/RLL motor, perception normal. LUE/LLE hemoparesis, + pain, + Babinsky.Unchanged) CBC and BMP: 03/15/18 05:15 03/15/18 05:15 ABG, PT/INR, D-dimer: PT/INR, D-dimer PT 13.2 Sec. (12.2-14.9) 03/10/18 21:31 INR 0.95 (0.87-1.13) 03/10/18 21:31 Abnormal lab findings: Abnormal Labs 03/10/18 03/10/18 03/10/18 19:25 19:25 19:25 WBC 11.6 H Lymph % (Auto) [place] % (Auto) Lymph # Seg Neutrophils % 80.0 H Seg Neutrophils # 9.1 H PT 10.7 L INR 0.74 L APTT > 240.0 H* Potassium 3.5 L Chloride Creatinine Glucose 124 H POC Glucose HDL Cholesterol 03/10/18 03/11/18 03/11/18 20:15 05:07 05:07 WBC Lymph % (Auto) 10.0 L [place] % (Auto) Lymph # 0.9 L Seg Neutrophils % 89.1 H Seg Neutrophils # 8.1 H PT INR APTT Potassium Chloride Creatinine 0.6 L Glucose 138 H POC Glucose 133 H HDL Cholesterol 73 H 03/11/18 03/11/18 03/12/18 13:41 23:20 09:01 WBC 14.7 H Lymph % (Auto) [place] % (Auto) Lymph # Seg Neutrophils % Seg Neutrophils # PT INR APTT Potassium Chloride Creatinine Glucose POC Glucose 109 H 118 H HDL Cholesterol 03/12/18 03/13/18 03/13/18 09:01 11:54 12:07 WBC Lymph % (Auto) [place] % (Auto) Lymph # Seg Neutrophils % Seg Neutrophils # PT INR APTT Potassium Chloride 108.0 H Creatinine Glucose 110 H POC Glucose 119 H HDL Cholesterol 03/14/18 03/15/18 03/15/18 16:10 05:15 05:15 WBC Lymph % (Auto) [place] % (Auto) 7.4 H Lymph # Seg Neutrophils % Seg Neutrophils # PT INR APTT Potassium Chloride Creatinine 0.6 L Glucose 118 H POC Glucose 107 H HDL Cholesterol
--- NOTE | 2018-03-15 13:18 | Discharge Summary ---
Providers - Providers Date of Admission: 03/10/18 23:45 Date of discharge: 03/15/18 Attending physician: DAVID HOPKINS 03/10/18 23:45 Consult to Physician [CONS] Routine Comment: Consulting Provider: KIMBER MACDONALD Physician Instructions: Reason For Exam: cva, s.p tpa 03/10/18 23:47 Occupational Therapy Evaluate and Treat [CONS] Routine Comment: Reason For Exam: Neuro deficits Physical Therapy Evaluation and Treat [CONS] Routine Comment: Reason For Exam: Neuro deficits 03/11/18 00:08 Consult to Physician [CONS] Routine Comment: Answering Service Notified Consulting Provider: ABRAN MESA Physician Instructions: Reason For Exam: cva, tpa 03/11/18 12:29 Speech Therapy Evaluation and Treat [CONS] Routine Reason For Exam: aphasia 03/11/18 18:44 Consult to Dietitian/Nutrition [CONS] Routine Physician Instructions: Assess nutrtn needs, initiate, modify, manage TF Reason For Exam: Reason for Consult: Write/Manage Tube Feeding Reason for Consult: Write/Manage Tube Feeding 03/11/18 18:47 Consult to Dietitian/Nutrition [CONS] Routine Physician Instructions: Reason For Exam: Reason for Consult: Write/Manage Tube Feeding Hospitalization Condition: Stable Hospital course: Discharge diagnosis; Acute right MCA CVA, s/p TPA - cont to Monitor at ICU - Cont to do neuro checks, gentle IV fluid for hydration - follow echo result, consulted neurology - Consulted physical, occupational and speech therapy, WILL NEED ACUTE REHAB - barium swallow eval showed no aspiration, cont on pureed diet with thin liquid - Repeat CT post-tPA didnot show any brain hemorrhage - repeat EEG for possible underlying seizure? stroke induced - cont on aspirin [place], statin Allergic reaction possible to dye versus TPA - treated with steroids, Benadryl as needed Hypertension, now normotensive - monitor BP, as needed hydralazine Leukocytosis, likely for acute CVA h/o fall with left hip pain, ordered XRY for possible fracture - normal findings DVT prophylaxis, SCD for now Radiological data: MRA brain: Cut off of the right middle cerebral artery at the level of the M1 segment concerning for occlusion. MRI brain: 1. Acute right frontotemporal infarct also involving the right basal ganglia and caudate nucleus. Minimal right to left midline shift of approximately 2 millimeters. 2. Probable occlusion of the right MCA. 3. Mild chronic findings of microvascular ischemic disease. Physical exam: General appearance: Present: no acute distress, well-nourished - EENT Eyes: no scleral icterus, no conjunctival injection ENT: hearing intact, clear oral mucosa Ears: bilateral: normal - Neck Neck: supple, normal ROM - Respiratory Respiratory effort: normal Respiratory: bilateral: CTA - Cardiovascular Rhythm: regular Heart Sounds: Present: S1 & S2. Absent: gallop, rub Extremities: pulses intact, No edema, normal color - Gastrointestinal General gastrointestinal: Present: soft, non-tender, non-distended, normal bowel sounds - Integumentary Integumentary: clear, warm, dry - Musculoskeletal Musculoskeletal: left sided weakness - Neurologic Neurologic: no gait normal - Psychiatric Psychiatric: appropriate mood/affect, cooperative Disposition: DC/[place] Time spent for discharge: 34 minutes Core Measure Documentation - Palliative Care Palliative Care/ Comfort Measures: Not Applicable - Core Measures Any of the following diagnoses?: stroke - Stroke Discharge Requirements Statin for LDL = or >70 mg/dl on DC: Yes Anticoag for atrial fib/atrial flutter: Not Applicable Antithrombotic for ischemic stroke: Yes Exam - Constitutional Vitals: Temp Pulse Resp BP Pulse Ox 98.0 F 86 18 129/92 98 03/15/18 08:14 03/15/18 11:00 03/15/18 10:00 03/15/18 08:14 03/15/18 08:14 Plan Activity: up only with assistance Diet: other (pureed diet with thin liquid) Follow up with: ANGELA NICHOLS [Other] - 7 Days Prescriptions: AtorvaSTATin [Lipitor] 40 mg PO QHS #30 tablet Aspirin EC [Aspirin Enteric Coated TAB] 81 mg PO QDAY #30 tablet Clopidogrel [Plavix] 75 mg PO QDAY #30 tablet
--- NOTE | 2018-03-15 15:28 | Progress Note ---
Assessment and Plan Acute right MCA CVA, s/p TPA - cont to Monitor at ICU - Cont to do neuro checks, gentle IV fluid for hydration - preserved EF on 2d echo result, consulted neurology - Repeat CT post-tPA didnot show any brain hemorrhage - repeat EEG for possible underlying seizure? stroke induced - Consulted physical, occupational and speech therapy, WILL NEED ACUTE REHAB - barium swallow eval showed no aspiration, cont on pureed diet with thin liquid - cont on aspirin [place], statin Allergic reaction possible to dye versus TPA - treated with steroids, Benadryl as needed Hypertension, now normotensive - monitor BP, as needed hydralazine Leukocytosis, likely for acute CVA h/o fall with left hip pain, ordered XRY for possible fracture - normal findings DVT prophylaxis, SCD for now Radiological data: MRA brain: Cut off of the right middle cerebral artery at the level of the M1 segment concerning for occlusion. MRI brain: 1. Acute right frontotemporal infarct also involving the right basal ganglia and caudate nucleus. Minimal right to left midline shift of approximately 2 millimeters. 2. Probable occlusion of the right MCA. 3. Mild chronic findings of microvascular ischemic disease. Physical exam: General appearance: Present: no acute distress, well-nourished - EENT Eyes: no scleral icterus, no conjunctival injection ENT: hearing intact, clear oral mucosa Ears: bilateral: normal - Neck Neck: supple, normal ROM - Respiratory Respiratory effort: normal Respiratory: bilateral: CTA - Cardiovascular Rhythm: regular Heart Sounds: Present: S1 & S2. Absent: gallop, rub Extremities: pulses intact, No edema, normal color - Gastrointestinal General gastrointestinal: Present: soft, non-tender, non-distended, normal bowel sounds - Integumentary Integumentary: clear, warm, dry - Musculoskeletal Musculoskeletal: left sided weakness - Neurologic Neurologic: no gait normal - Psychiatric Psychiatric: appropriate mood/affect, cooperative Subjective Date of service: 03/22/18 Principal diagnosis: stroke Interval history: Patient seen and examined Left sided weakness with aphasia Denies any chest pain or SOB tolerating pureed diet pending d/c for acute rehab placement Objective - Constitutional Vitals: Vital Signs - 12hr 03/15/18 03/15/18 03/15/18 04:45 08:14 10:00 Temperature 98.0 F 98.0 F Pulse Rate 79 72 Respiratory 22 20 Rate Respiratory 18 Rate [Left Leg] Blood Pressure 131/76 129/92 O2 Sat by Pulse 98 98 Oximetry 03/15/18 03/15/18 11:00 14:30 Temperature Pulse Rate 86 Respiratory Rate Respiratory Rate [Left Leg] Blood Pressure O2 Sat by Pulse 98 Oximetry - Labs CBC & Chem 7: 03/15/18 05:15 03/15/18 05:15 Labs: Abnormal lab results 03/14/18 03/15/18 03/15/18 Range/Units 16:10 05:15 05:15 [place] % (Auto) 7.4 H (0.0-7.3) % Creatinine 0.6 L (0.7-1.2) mg/dL Glucose 118 H (65-100) mg/dL POC Glucose 107 H (70-105) 03/15/18 Range/Units 11:57 [place] % (Auto) (0.0-7.3) % Creatinine (0.7-1.2) mg/dL Glucose (65-100) mg/dL POC Glucose 113 H (70-105)
[2018-03-15] MEDS: TYLENOL PO PRN (22:01)
[2018-03-15] MEDS: LOVENOX SUB-Q SCH (22:02)
--- NOTE | 2018-03-15 23:01 | Physician Progress Note ---
NEUROLOGY PROGRESS NOTE SUBJECTIVE: The patient is doing very-very well. She has a feeding tube. She, however, would not want to eat. I believe this is because of the nature of the food. She has a successful barium swallow. She passed the test. OBJECTIVE: VITAL SIGNS: Stable. GENERAL: She is aphasic. She has receptive aphasia. Paralyzed in the left side, arm and the leg. The left arm is no longer swollen. IV site was removed. ASSESSMENT: Post-TPA, cerebrovascular accident, right hemisphere. PLAN: [facility] I advised her dietitian evaluation to check what food she would prefer. Prognosis is improved and better than before. The patient still has significant functional deficits, mainly speech and left-sided hemiplegia. Fully discussed with the . I will be out from the care of the patient due to the end of my term. Another neurologist will continue with followup care. The hospitalist to proceed also with medical care, transfer. JOB# [id number] VALERIE/MEG
[2018-03-16] MEDS: HumuLIN R SUB-Q SCH ×3 (00:01→17:53)
--- NOTE | 2018-03-16 09:26 | Progress Note ---
Assessment and Plan Assessment and plan: Acute right MCA CVA, s/p TPA - preserved EF on 2d echo result, consulted neurology - Repeat CT post-tPA didnot show any brain hemorrhage - repeat EEG for possible underlying seizure? stroke induced - Consulted physical, occupational and speech therapy, WILL NEED ACUTE REHAB - barium swallow eval showed no aspiration, cont on pureed diet with thin liquid - cont on aspirin, statin Allergic reaction possible to dye versus TPA - treated with steroids, Benadryl as needed Hypertension, now normotensive - monitor BP, as needed hydralazine Leukocytosis, likely for acute CVA h/o fall with left hip pain, ordered XRY for possible fracture - normal findings DVT prophylaxis, SCD for now Radiological data: MRA brain: Cut off of the right middle cerebral artery at the level of the M1 segment concerning for occlusion. MRI brain: 1. Acute right frontotemporal infarct also involving the right basal ganglia and caudate nucleus. Minimal right to left midline shift of approximately 2 millimeters. 2. Probable occlusion of the right MCA. 3. Mild chronic findings of microvascular ischemic disease. History Interval history: Patient was seen and evaluated this morning, patient has left-sided weakness, Family members were in the room and discussed the plan of care. Hospitalist Physical - Physical exam Narrative exam: Not in cardiopulmonary distress. The patient is obese. Vital signs as documented. Head exam is unremarkable. No scleral icterus . Neck is without jugular venous distension, thyromegaly, or carotid bruits. Lungs are clear to auscultation. Cardiac exam reveals regular rate and Rhythm. First and second heart sounds normal. No murmurs, rubs or gallops. Abdominal exam reveals normal bowel sounds, no masses, no organomegaly and no aortic enlargement. Extremities are nonedematous and both femoral and pedal pulses are normal. 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 - Constitutional Vitals: Temp Pulse Resp BP Pulse Ox 98.3 F 78 20 139/65 96 03/16/18 05:22 03/16/18 05:22 03/16/18 05:22 03/16/18 05:22 03/16/18 08:26 General appearance: Present: no acute distress, well-nourished Results - Labs CBC & Chem 7: 03/15/18 05:15 03/15/18 05:15 Labs: Laboratory Last Values WBC 8.7 K/mm3 (4.5-11.0) 03/15/18 05:15 RBC 4.14 M/mm3 (3.65-5.03) 03/15/18 05:15 Hgb 12.7 gm/dl (10.1-14.3) 03/15/18 05:15 Hct 37.1 % (30.3-42.9) 03/15/18 05:15 MCV 90 fl (79-97) 03/15/18 05:15 MCH 31 pg (28-32) 03/15/18 05:15 MCHC 34 % (30-34) 03/15/18 05:15 RDW 14.0 % (13.2-15.2) 03/15/18 05:15 Plt Count 177 K/mm3 (140-440) 03/15/18 05:15 Lymph % (Auto) 26.0 % (13.4-35.0) 03/15/18 05:15 Darke % (Auto) 7.4 % (0.0-7.3) H 03/15/18 05:15 Eos % (Auto) 1.9 % (0.0-4.3) 03/15/18 05:15 Baso % (Auto) 0.2 % (0.0-1.8) 03/15/18 05:15 Lymph # 2.3 K/mm3 (1.2-5.4) 03/15/18 05:15 Darke # 0.6 K/mm3 (0.0-0.8) 03/15/18 05:15 Eos # 0.2 K/mm3 (0.0-0.4) 03/15/18 05:15 Baso # 0.0 K/mm3 (0.0-0.1) 03/15/18 05:15 Total Counted Cancelled 03/10/18 19:25 Seg Neutrophils % 64.5 % (40.0-70.0) 03/15/18 05:15 Seg Neuts % (Manual) Cancelled 03/10/18 19:25 Band Neutrophils % Cancelled 03/10/18 19:25 Lymphocytes % (Manual) Cancelled 03/10/18 19:25 Reactive Lymphs % (Man) Cancelled 03/10/18 19:25 Monocytes % (Manual) Cancelled 03/10/18 19:25 Eosinophils % (Manual) Cancelled 03/10/18 19:25 Basophils % (Manual) Cancelled 03/10/18 19:25 Metamyelocytes % Cancelled 03/10/18 19:25 Myelocytes % Cancelled 03/10/18 19:25 Promyelocytes % Cancelled 03/10/18 19:25 Blast Cells % Cancelled 03/10/18 19:25 Nucleated RBC % Cancelled 03/10/18 19:25 Seg Neutrophils # 5.6 K/mm3 (1.8-7.7) 03/15/18 05:15 Seg Neutrophils # Man Cancelled 03/10/18 19:25 Band Neutrophils # Cancelled 03/10/18 19:25 Lymphocytes # (Manual) Cancelled 03/10/18 19:25 Abs React Lymphs (Man) Cancelled 03/10/18 19:25 Monocytes # (Manual) Cancelled 03/10/18 19:25 Eosinophils # (Manual) Cancelled 03/10/18 19:25 Basophils # (Manual) Cancelled 03/10/18 19:25 Metamyelocytes # Cancelled 03/10/18 19:25 Myelocytes # Cancelled 03/10/18 19:25 Promyelocytes # Cancelled 03/10/18 19:25 Blast Cells # Cancelled 03/10/18 19:25 WBC Morphology Cancelled 03/10/18 19:25 Hypersegmented Neuts Cancelled 03/10/18 19:25 Hyposegmented Neuts Cancelled 03/10/18 19:25 Hypogranular Neuts Cancelled 03/10/18 19:25 Hypersegmented Polys Cancelled 03/10/18 19:25 Smudge Cells Cancelled 03/10/18 19:25 Toxic Granulation Cancelled 03/10/18 19:25 Toxic Vacuolation Cancelled 03/10/18 19:25 Dohle Bodies Cancelled 03/10/18 19:25 Pelger-Huet Anomaly Cancelled 03/10/18 19:25 Shayla Rods Cancelled 03/10/18 19:25 Platelet Estimate Cancelled 03/10/18 19:25 Clumped Platelets Cancelled 03/10/18 19:25 Plt Clumps, EDTA Cancelled 03/10/18 19:25 Large Platelets Cancelled 03/10/18 19:25 Giant Platelets Cancelled 03/10/18 19:25 Platelet Satelliting Cancelled 03/10/18 19:25 Plt Morphology Comment Cancelled 03/10/18 19:25 RBC Morphology Cancelled 03/10/18 19:25 Dimorphic RBCs Cancelled 03/10/18 19:25 Polychromasia Cancelled 03/10/18 19:25 Hypochromasia Cancelled 03/10/18 19:25 Poikilocytosis Cancelled 03/10/18 19:25 Basophilic Stippling Cancelled 03/10/18 19:25 Anisocytosis Cancelled 03/10/18 19:25 Microcytosis Cancelled 03/10/18 19:25 Macrocytosis Cancelled 03/10/18 19:25 Spherocytes Cancelled 03/10/18 19:25 Pappenheimer Bodies Cancelled 03/10/18 19:25 Sickle Cells Cancelled 03/10/18 19:25 Target Cells Cancelled 03/10/18 19:25 Tear Drop Cells Cancelled 03/10/18 19:25 Ovalocytes Cancelled 03/10/18 19:25 Stomatocytes Cancelled 03/10/18 19:25 Helmet Cells Cancelled 03/10/18 19:25 [place] Bodies Cancelled 03/10/18 19:25 [place] Rings Cancelled 03/10/18 19:25 Sergio Cells Cancelled 03/10/18 19:25 Bite Cells Cancelled 03/10/18 19:25 Crenated Cell Cancelled 03/10/18 19:25 Elliptocytes Cancelled 03/10/18 19:25 Acanthocytes (Spur) Cancelled 03/10/18 19:25 Rouleaux Cancelled 03/10/18 19:25 Hemoglobin C Crystals Cancelled 03/10/18 19:25 Schistocytes Cancelled 03/10/18 19:25 Malaria parasites Cancelled 03/10/18 19:25 Keron Bodies Cancelled 03/10/18 19:25 Hem Pathologist Commnt Cancelled 03/10/18 19:25 PT 13.2 Sec. (12.2-14.9) 03/10/18 21:31 INR 0.95 (0.87-1.13) 03/10/18 21:31 APTT 25.3 Sec. (24.2-36.6) 03/10/18 21:31 Thrombin Time 15.7 Sec. (15.1-19.6) 03/10/18 19:25 Sodium 142 mmol/L (137-145) 03/15/18 05:15 Potassium 4.0 mmol/L (3.6-5.0) 03/15/18 05:15 Chloride 105.6 mmol/L (98-107) 03/15/18 05:15 Carbon Dioxide 26 mmol/L (22-30) 03/15/18 05:15 Anion Gap 14 mmol/L 03/15/18 05:15 BUN 12 mg/dL (7-17) 03/15/18 05:15 Creatinine 0.6 mg/dL (0.7-1.2) L 03/15/18 05:15 Estimated GFR > 60 ml/min 03/15/18 05:15 BUN/Creatinine Ratio 20 % 03/15/18 05:15 Glucose 118 mg/dL (65-100) H 03/15/18 05:15 POC Glucose 116 (70-105) H 03/15/18 21:13 Calcium 8.9 mg/dL (8.4-10.2) 03/15/18 05:15 Troponin T < 0.010 ng/mL (0.00-0.029) 03/10/18 19:25 Triglycerides 37 mg/dL (2-149) 03/11/18 05:07 Cholesterol 168 mg/dL (50-199) 03/11/18 05:07 LDL Cholesterol Direct 101 mg/dL (50-130) 03/11/18 05:07 HDL Cholesterol 73 mg/dL (40-59) H 03/11/18 05:07 Cholesterol/HDL Ratio 2.30 % 03/11/18 05:07
[2018-03-16] MEDS: PLAVIX PO SCH (11:54)
[2018-03-16] MEDS: HALFPRIN EC PO SCH (11:54)
[2018-03-16] MEDS: PEPCID PO SCH ×2 (11:54→22:09)
[2018-03-16] MEDS: SODIUM CHLORIDE FLUSH SYRINGE 10 ML IV SCH ×2 (11:55→22:13)
[2018-03-16] MEDS: LOVENOX SUB-Q SCH (22:07)
--- NOTE | 2018-03-17 08:10 | Progress Note ---
Assessment and Plan Assessment and plan: Acute right MCA CVA, s/p TPA - preserved EF on 2d echo result, consulted neurology - Repeat CT post-tPA didnot show any brain hemorrhage - repeat EEG for possible underlying seizure? stroke induced - Consulted physical, occupational and speech therapy, WILL NEED ACUTE REHAB - barium swallow eval showed no aspiration, cont on pureed diet with thin liquid - cont on aspirin, statin Allergic reaction possible to dye versus TPA - treated with steroids, Benadryl as needed Hypertension - Currently on the low side of normal Leukocytosis, likely for acute CVA - Resolved h/o fall with left hip pain, ordered XRY for possible fracture - normal findings DVT prophylaxis, SCD for now Radiological data: MRA brain: Cut off of the right middle cerebral artery at the level of the M1 segment concerning for occlusion. MRI brain: 1. Acute right frontotemporal infarct also involving the right basal ganglia and caudate nucleus. Minimal right to left midline shift of approximately 2 millimeters. 2. Probable occlusion of the right MCA. 3. Mild chronic findings of microvascular ischemic disease. History Interval history: Patient was seen and evaluated this morning, patient has left-sided weakness, patient is complaining pain in her foot . Hospitalist Physical - Physical exam Narrative exam: Not in cardiopulmonary distress. The patient is obese. Vital signs as documented. Head exam is unremarkable. No scleral icterus . Neck is without jugular venous distension, thyromegaly, or carotid bruits. Lungs are clear to auscultation. Cardiac exam reveals regular rate and Rhythm. First and second heart sounds normal. No murmurs, rubs or gallops. Abdominal exam reveals normal bowel sounds, no masses, no organomegaly and no aortic enlargement. Extremities are nonedematous and both femoral and pedal pulses are normal. 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 - Constitutional Vitals: Temp Pulse Resp BP Pulse Ox 97.9 F 82 20 114/69 95 03/17/18 06:57 03/17/18 06:57 03/17/18 06:57 03/17/18 06:57 03/17/18 06:57 General appearance: Present: no acute distress, well-nourished Results - Labs CBC & Chem 7: 03/15/18 05:15 03/15/18 05:15 Labs: Laboratory Last Values WBC 8.7 K/mm3 (4.5-11.0) 03/15/18 05:15 RBC 4.14 M/mm3 (3.65-5.03) 03/15/18 05:15 Hgb 12.7 gm/dl (10.1-14.3) 03/15/18 05:15 Hct 37.1 % (30.3-42.9) 03/15/18 05:15 MCV 90 fl (79-97) 03/15/18 05:15 MCH 31 pg (28-32) 03/15/18 05:15 MCHC 34 % (30-34) 03/15/18 05:15 RDW 14.0 % (13.2-15.2) 03/15/18 05:15 Plt Count 177 K/mm3 (140-440) 03/15/18 05:15 Lymph % (Auto) 26.0 % (13.4-35.0) 03/15/18 05:15 [place] % (Auto) 7.4 % (0.0-7.3) H 03/15/18 05:15 Eos % (Auto) 1.9 % (0.0-4.3) 03/15/18 05:15 Baso % (Auto) 0.2 % (0.0-1.8) 03/15/18 05:15 Lymph # 2.3 K/mm3 (1.2-5.4) 03/15/18 05:15 [place] # 0.6 K/mm3 (0.0-0.8) 03/15/18 05:15 Eos # 0.2 K/mm3 (0.0-0.4) 03/15/18 05:15 Baso # 0.0 K/mm3 (0.0-0.1) 03/15/18 05:15 Total Counted Cancelled 03/10/18 19:25 Seg Neutrophils % 64.5 % (40.0-70.0) 03/15/18 05:15 Seg Neuts % (Manual) Cancelled 03/10/18 19:25 Band Neutrophils % Cancelled 03/10/18 19:25 Lymphocytes % (Manual) Cancelled 03/10/18 19:25 Reactive Lymphs % (Man) Cancelled 03/10/18 19:25 Monocytes % (Manual) Cancelled 03/10/18 19:25 Eosinophils % (Manual) Cancelled 03/10/18 19:25 Basophils % (Manual) Cancelled 03/10/18 19:25 Metamyelocytes % Cancelled 03/10/18 19:25 Myelocytes % Cancelled 03/10/18 19:25 Promyelocytes % Cancelled 03/10/18 19:25 Blast Cells % Cancelled 03/10/18 19:25 Nucleated RBC % Cancelled 03/10/18 19:25 Seg Neutrophils # 5.6 K/mm3 (1.8-7.7) 03/15/18 05:15 Seg Neutrophils # Man Cancelled 03/10/18 19:25 Band Neutrophils # Cancelled 03/10/18 19:25 Lymphocytes # (Manual) Cancelled 03/10/18 19:25 Abs React Lymphs (Man) Cancelled 03/10/18 19:25 Monocytes # (Manual) Cancelled 03/10/18 19:25 Eosinophils # (Manual) Cancelled 03/10/18 19:25 Basophils # (Manual) Cancelled 03/10/18 19:25 Metamyelocytes # Cancelled 03/10/18 19:25 Myelocytes # Cancelled 03/10/18 19:25 Promyelocytes # Cancelled 03/10/18 19:25 Blast Cells # Cancelled 03/10/18 19:25 WBC Morphology Cancelled 03/10/18 19:25 Hypersegmented Neuts Cancelled 03/10/18 19:25 Hyposegmented Neuts Cancelled 03/10/18 19:25 Hypogranular Neuts Cancelled 03/10/18 19:25 Hypersegmented Polys Cancelled 03/10/18 19:25 Smudge Cells Cancelled 03/10/18 19:25 Toxic Granulation Cancelled 03/10/18 19:25 Toxic Vacuolation Cancelled 03/10/18 19:25 Dohle Bodies Cancelled 03/10/18 19:25 Pelger-Huet Anomaly Cancelled 03/10/18 19:25 Shayla Rods Cancelled 03/10/18 19:25 Platelet Estimate Cancelled 03/10/18 19:25 Clumped Platelets Cancelled 03/10/18 19:25 Plt Clumps, EDTA Cancelled 03/10/18 19:25 Large Platelets Cancelled 03/10/18 19:25 Giant Platelets Cancelled 03/10/18 19:25 Platelet Satelliting Cancelled 03/10/18 19:25 Plt Morphology Comment Cancelled 03/10/18 19:25 RBC Morphology Cancelled 03/10/18 19:25 Dimorphic RBCs Cancelled 03/10/18 19:25 Polychromasia Cancelled 03/10/18 19:25 Hypochromasia Cancelled 03/10/18 19:25 Poikilocytosis Cancelled 03/10/18 19:25 Basophilic Stippling Cancelled 03/10/18 19:25 Anisocytosis Cancelled 03/10/18 19:25 Microcytosis Cancelled 03/10/18 19:25 Macrocytosis Cancelled 03/10/18 19:25 Spherocytes Cancelled 03/10/18 19:25 Pappenheimer Bodies Cancelled 03/10/18 19:25 Sickle Cells Cancelled 03/10/18 19:25 Target Cells Cancelled 03/10/18 19:25 Tear Drop Cells Cancelled 03/10/18 19:25 Ovalocytes Cancelled 03/10/18 19:25 Stomatocytes Cancelled 03/10/18 19:25 Helmet Cells Cancelled 03/10/18 19:25 Martin-[place] Bodies Cancelled 03/10/18 19:25 [place] Rings Cancelled 03/10/18 19:25 [place] Cells Cancelled 03/10/18 19:25 Bite Cells Cancelled 03/10/18 19:25 Crenated Cell Cancelled 03/10/18 19:25 Elliptocytes Cancelled 03/10/18 19:25 Acanthocytes (Spur) Cancelled 03/10/18 19:25 Rouleaux Cancelled 03/10/18 19:25 Hemoglobin C Crystals Cancelled 03/10/18 19:25 Schistocytes Cancelled 03/10/18 19:25 Malaria parasites Cancelled 03/10/18 19:25 Keron Bodies Cancelled 03/10/18 19:25 Hem Pathologist Commnt Cancelled 03/10/18 19:25 PT 13.2 Sec. (12.2-14.9) 03/10/18 21:31 INR 0.95 (0.87-1.13) 03/10/18 21:31 APTT 25.3 Sec. (24.2-36.6) 03/10/18 21:31 Thrombin Time 15.7 Sec. (15.1-19.6) 03/10/18 19:25 Sodium 142 mmol/L (137-145) 03/15/18 05:15 Potassium 4.0 mmol/L (3.6-5.0) 03/15/18 05:15 Chloride 105.6 mmol/L (98-107) 03/15/18 05:15 Carbon Dioxide 26 mmol/L (22-30) 03/15/18 05:15 Anion Gap 14 mmol/L 03/15/18 05:15 BUN 12 mg/dL (7-17) 03/15/18 05:15 Creatinine 0.6 mg/dL (0.7-1.2) L 03/15/18 05:15 Estimated GFR > 60 ml/min 03/15/18 05:15 BUN/Creatinine Ratio 20 % 03/15/18 05:15 Glucose 118 mg/dL (65-100) H 03/15/18 05:15 POC Glucose 96 (70-105) 03/16/18 22:22 Calcium 8.9 mg/dL (8.4-10.2) 03/15/18 05:15 Troponin T < 0.010 ng/mL (0.00-0.029) 03/10/18 19:25 Triglycerides 37 mg/dL (2-149) 03/11/18 05:07 Cholesterol 168 mg/dL (50-199) 03/11/18 05:07 LDL Cholesterol Direct 101 mg/dL (50-130) 03/11/18 05:07 HDL Cholesterol 73 mg/dL (40-59) H 03/11/18 05:07 Cholesterol/HDL Ratio 2.30 % 03/11/18 05:07
[2018-03-17] MEDS: PERCOCET 5/325 PO PRN ×2 (08:23→15:37)
[2018-03-17] MEDS: PEPCID PO SCH ×2 (12:05→21:43)
[2018-03-17] MEDS: PLAVIX PO SCH (12:06)
[2018-03-17] MEDS: HALFPRIN EC PO SCH (12:16)
[2018-03-17] MEDS: SODIUM CHLORIDE FLUSH SYRINGE 10 ML IV SCH ×2 (12:16→21:44)
[2018-03-17] MEDS: HumuLIN R SUB-Q SCH ×2 (12:30→17:50)
[2018-03-17] MEDS: LOVENOX SUB-Q SCH (21:44)
[2018-03-18] MEDS: HumuLIN R SUB-Q SCH (00:47)
[2018-03-18] MEDS: SODIUM CHLORIDE FLUSH SYRINGE 10 ML IV SCH (10:45)
[2018-03-18] MEDS: PEPCID PO SCH ×2 (10:45→22:20)
[2018-03-18] MEDS: HALFPRIN EC PO SCH (10:45)
[2018-03-18] MEDS: PLAVIX PO SCH (10:45)
--- NOTE | 2018-03-18 15:05 | Progress Note ---
Assessment and Plan Assessment and plan: Acute right MCA CVA, s/p TPA - preserved EF on 2d echo result, consulted neurology - Repeat CT post-tPA didnot show any brain hemorrhage - repeat EEG for possible underlying seizure? stroke induced - Consulted physical, occupational and speech therapy, WILL NEED ACUTE REHAB - barium swallow eval showed no aspiration, cont on pureed diet with thin liquid - cont on aspirin, statin Allergic reaction possible to dye versus TPA - treated with steroids, Benadryl as needed Hypertension - Currently on the low side of normal Leukocytosis, likely for acute CVA - Resolved h/o fall with left hip pain, ordered XRY for possible fracture - normal findings DVT prophylaxis, on Lovenox Radiological data: MRA brain: Cut off of the right middle cerebral artery at the level of the M1 segment concerning for occlusion. MRI brain: 1. Acute right frontotemporal infarct also involving the right basal ganglia and caudate nucleus. Minimal right to left midline shift of approximately 2 millimeters. 2. Probable occlusion of the right MCA. 3. Mild chronic findings of microvascular ischemic disease. History Interval history: Patient was seen and evaluated this morning, patient has left-sided weakness, no nursing issues overnight. Hospitalist Physical - Physical exam Narrative exam: Not in cardiopulmonary distress. The patient is obese. Vital signs as documented. Head exam is unremarkable. No scleral icterus . Neck is without jugular venous distension, thyromegaly, or carotid bruits. Lungs are clear to auscultation. Cardiac exam reveals regular rate and Rhythm. First and second heart sounds normal. No murmurs, rubs or gallops. Abdominal exam reveals normal bowel sounds, no masses, no organomegaly and no aortic enlargement. Extremities are nonedematous and both femoral and pedal pulses are normal. 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 - Constitutional Vitals: Temp Pulse Resp BP Pulse Ox 98.6 F 77 20 104/65 80 L 03/18/18 11:51 03/18/18 11:51 03/18/18 11:51 03/18/18 11:51 03/18/18 11:51 General appearance: Present: no acute distress, well-nourished Results - Labs CBC & Chem 7: 03/15/18 05:15 03/15/18 05:15 Labs: Laboratory Last Values WBC 8.7 K/mm3 (4.5-11.0) 03/15/18 05:15 RBC 4.14 M/mm3 (3.65-5.03) 03/15/18 05:15 Hgb 12.7 gm/dl (10.1-14.3) 03/15/18 05:15 Hct 37.1 % (30.3-42.9) 03/15/18 05:15 MCV 90 fl (79-97) 03/15/18 05:15 MCH 31 pg (28-32) 03/15/18 05:15 MCHC 34 % (30-34) 03/15/18 05:15 RDW 14.0 % (13.2-15.2) 03/15/18 05:15 Plt Count 177 K/mm3 (140-440) 03/15/18 05:15 Lymph % (Auto) 26.0 % (13.4-35.0) 03/15/18 05:15 [place] % (Auto) 7.4 % (0.0-7.3) H 03/15/18 05:15 Eos % (Auto) 1.9 % (0.0-4.3) 03/15/18 05:15 Baso % (Auto) 0.2 % (0.0-1.8) 03/15/18 05:15 Lymph # 2.3 K/mm3 (1.2-5.4) 03/15/18 05:15 [place] # 0.6 K/mm3 (0.0-0.8) 03/15/18 05:15 Eos # 0.2 K/mm3 (0.0-0.4) 03/15/18 05:15 Baso # 0.0 K/mm3 (0.0-0.1) 03/15/18 05:15 Total Counted Cancelled 03/10/18 19:25 Seg Neutrophils % 64.5 % (40.0-70.0) 03/15/18 05:15 Seg Neuts % (Manual) Cancelled 03/10/18 19:25 Band Neutrophils % Cancelled 03/10/18 19:25 Lymphocytes % (Manual) Cancelled 03/10/18 19:25 Reactive Lymphs % (Man) Cancelled 03/10/18 19:25 Monocytes % (Manual) Cancelled 03/10/18 19:25 Eosinophils % (Manual) Cancelled 03/10/18 19:25 Basophils % (Manual) Cancelled 03/10/18 19:25 Metamyelocytes % Cancelled 03/10/18 19:25 Myelocytes % Cancelled 03/10/18 19:25 Promyelocytes % Cancelled 03/10/18 19:25 Blast Cells % Cancelled 03/10/18 19:25 Nucleated RBC % Cancelled 03/10/18 19:25 Seg Neutrophils # 5.6 K/mm3 (1.8-7.7) 03/15/18 05:15 Seg Neutrophils # Man Cancelled 03/10/18 19:25 Band Neutrophils # Cancelled 03/10/18 19:25 Lymphocytes # (Manual) Cancelled 03/10/18 19:25 Abs React Lymphs (Man) Cancelled 03/10/18 19:25 Monocytes # (Manual) Cancelled 03/10/18 19:25 Eosinophils # (Manual) Cancelled 03/10/18 19:25 Basophils # (Manual) Cancelled 03/10/18 19:25 Metamyelocytes # Cancelled 03/10/18 19:25 Myelocytes # Cancelled 03/10/18 19:25 Promyelocytes # Cancelled 03/10/18 19:25 Blast Cells # Cancelled 03/10/18 19:25 WBC Morphology Cancelled 03/10/18 19:25 Hypersegmented Neuts Cancelled 03/10/18 19:25 Hyposegmented Neuts Cancelled 03/10/18 19:25 Hypogranular Neuts Cancelled 03/10/18 19:25 Hypersegmented Polys Cancelled 03/10/18 19:25 Smudge Cells Cancelled 03/10/18 19:25 Toxic Granulation Cancelled 03/10/18 19:25 Toxic Vacuolation Cancelled 03/10/18 19:25 Dohle Bodies Cancelled 03/10/18 19:25 Pelger-Huet Anomaly Cancelled 03/10/18 19:25 Shayla Rods Cancelled 03/10/18 19:25 Platelet Estimate Cancelled 03/10/18 19:25 Clumped Platelets Cancelled 03/10/18 19:25 Plt Clumps, EDTA Cancelled 03/10/18 19:25 Large Platelets Cancelled 03/10/18 19:25 Giant Platelets Cancelled 03/10/18 19:25 Platelet Satelliting Cancelled 03/10/18 19:25 Plt Morphology Comment Cancelled 03/10/18 19:25 RBC Morphology Cancelled 03/10/18 19:25 Dimorphic RBCs Cancelled 03/10/18 19:25 Polychromasia Cancelled 03/10/18 19:25 Hypochromasia Cancelled 03/10/18 19:25 Poikilocytosis Cancelled 03/10/18 19:25 Basophilic Stippling Cancelled 03/10/18 19:25 Anisocytosis Cancelled 03/10/18 19:25 Microcytosis Cancelled 03/10/18 19:25 Macrocytosis Cancelled 03/10/18 19:25 Spherocytes Cancelled 03/10/18 19:25 Pappenheimer Bodies Cancelled 03/10/18 19:25 Sickle Cells Cancelled 03/10/18 19:25 Target Cells Cancelled 03/10/18 19:25 Tear Drop Cells Cancelled 03/10/18 19:25 Ovalocytes Cancelled 03/10/18 19:25 Stomatocytes Cancelled 03/10/18 19:25 Helmet Cells Cancelled 03/10/18 19:25 [place] Bodies Cancelled 03/10/18 19:25 [place] Rings Cancelled 03/10/18 19:25 Sergio Cells Cancelled 03/10/18 19:25 Bite Cells Cancelled 03/10/18 19:25 Crenated Cell Cancelled 03/10/18 19:25 Elliptocytes Cancelled 03/10/18 19:25 Acanthocytes (Spur) Cancelled 03/10/18 19:25 Rouleaux Cancelled 03/10/18 19:25 Hemoglobin C Crystals Cancelled 03/10/18 19:25 Schistocytes Cancelled 03/10/18 19:25 Malaria parasites Cancelled 03/10/18 19:25 Keron Bodies Cancelled 03/10/18 19:25 Hem Pathologist Commnt Cancelled 03/10/18 19:25 PT 13.2 Sec. (12.2-14.9) 03/10/18 21:31 INR 0.95 (0.87-1.13) 03/10/18 21:31 APTT 25.3 Sec. (24.2-36.6) 03/10/18 21:31 Thrombin Time 15.7 Sec. (15.1-19.6) 03/10/18 19:25 Sodium 142 mmol/L (137-145) 03/15/18 05:15 Potassium 4.0 mmol/L (3.6-5.0) 03/15/18 05:15 Chloride 105.6 mmol/L (98-107) 03/15/18 05:15 Carbon Dioxide 26 mmol/L (22-30) 03/15/18 05:15 Anion Gap 14 mmol/L 03/15/18 05:15 BUN 12 mg/dL (7-17) 03/15/18 05:15 Creatinine 0.6 mg/dL (0.7-1.2) L 03/15/18 05:15 Estimated GFR > 60 ml/min 03/15/18 05:15 BUN/Creatinine Ratio 20 % 03/15/18 05:15 Glucose 118 mg/dL (65-100) H 03/15/18 05:15 POC Glucose 110 (70-105) H 03/18/18 12:03 Calcium 8.9 mg/dL (8.4-10.2) 03/15/18 05:15 Troponin T < 0.010 ng/mL (0.00-0.029) 03/10/18 19:25 Triglycerides 37 mg/dL (2-149) 03/11/18 05:07 Cholesterol 168 mg/dL (50-199) 03/11/18 05:07 LDL Cholesterol Direct 101 mg/dL (50-130) 03/11/18 05:07 HDL Cholesterol 73 mg/dL (40-59) H 03/11/18 05:07 Cholesterol/HDL Ratio 2.30 % 03/11/18 05:07
[2018-03-18] MEDS: LOVENOX SUB-Q SCH (22:20)
[2018-03-18] MEDS: PERCOCET 5/325 PO PRN (23:43)
[2018-03-19] MEDS: SODIUM CHLORIDE FLUSH SYRINGE 10 ML IV SCH
[2018-03-19] MEDS: HumuLIN R SUB-Q SCH ×2 (06:00)
--- NOTE | 2018-03-19 08:11 | Progress Note ---
Assessment and Plan Assessment and plan: Acute right MCA CVA, s/p TPA, with left sided hemiplegia - preserved EF on 2d echo result, consulted neurology - Repeat CT post-tPA didnot show any brain hemorrhage - Consulted physical, occupational and speech therapy, WILL NEED ACUTE REHAB - barium swallow eval showed no aspiration, cont regular thin liquid - cont on aspirin, statin Allergic reaction possible to dye versus TPA - treated with steroids, Benadryl as needed Hypertension - Currently on the low side of normal Leukocytosis, likely for acute CVA - Resolved h/o fall with left hip pain, ordered XRY for possible fracture - normal findings DVT prophylaxis, on Lovenox Radiological data: MRA brain: Cut off of the right middle cerebral artery at the level of the M1 segment concerning for occlusion. MRI brain: 1. Acute right frontotemporal infarct also involving the right basal ganglia and caudate nucleus. Minimal right to left midline shift of approximately 2 millimeters. 2. Probable occlusion of the right MCA. 3. Mild chronic findings of microvascular ischemic disease. Disposition: Pending acute rehab placement, pending authorization. History Interval history: Patient was seen and evaluated this morning, patient has left-sided weakness, no nursing issues overnight. Hospitalist Physical - Physical exam Narrative exam: Not in cardiopulmonary distress. The patient is obese. Vital signs as documented. Head exam is unremarkable. No scleral icterus . Neck is without jugular venous distension, thyromegaly, or carotid bruits. Lungs are clear to auscultation. Cardiac exam reveals regular rate and Rhythm. First and second heart sounds normal. No murmurs, rubs or gallops. Abdominal exam reveals normal bowel sounds, no masses, no organomegaly and no aortic enlargement. Extremities are nonedematous and both femoral and pedal pulses are normal. 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 - Constitutional Vitals: Temp Pulse Resp BP Pulse Ox 97.7 F 76 18 102/59 97 03/19/18 06:22 03/19/18 06:22 03/19/18 06:22 03/19/18 06:22 03/19/18 06:22 General appearance: Present: no acute distress, well-nourished Results - Labs CBC & Chem 7: 03/15/18 05:15 03/15/18 05:15 Labs: Laboratory Last Values WBC 8.7 K/mm3 (4.5-11.0) 03/15/18 05:15 RBC 4.14 M/mm3 (3.65-5.03) 03/15/18 05:15 Hgb 12.7 gm/dl (10.1-14.3) 03/15/18 05:15 Hct 37.1 % (30.3-42.9) 03/15/18 05:15 MCV 90 fl (79-97) 03/15/18 05:15 MCH 31 pg (28-32) 03/15/18 05:15 MCHC 34 % (30-34) 03/15/18 05:15 RDW 14.0 % (13.2-15.2) 03/15/18 05:15 Plt Count 177 K/mm3 (140-440) 03/15/18 05:15 Lymph % (Auto) 26.0 % (13.4-35.0) 03/15/18 05:15 [place] % (Auto) 7.4 % (0.0-7.3) H 03/15/18 05:15 Eos % (Auto) 1.9 % (0.0-4.3) 03/15/18 05:15 Baso % (Auto) 0.2 % (0.0-1.8) 03/15/18 05:15 Lymph # 2.3 K/mm3 (1.2-5.4) 03/15/18 05:15 [place] # 0.6 K/mm3 (0.0-0.8) 03/15/18 05:15 Eos # 0.2 K/mm3 (0.0-0.4) 03/15/18 05:15 Baso # 0.0 K/mm3 (0.0-0.1) 03/15/18 05:15 Total Counted Cancelled 03/10/18 19:25 Seg Neutrophils % 64.5 % (40.0-70.0) 03/15/18 05:15 Seg Neuts % (Manual) Cancelled 03/10/18 19:25 Band Neutrophils % Cancelled 03/10/18 19:25 Lymphocytes % (Manual) Cancelled 03/10/18 19:25 Reactive Lymphs % (Man) Cancelled 03/10/18 19:25 Monocytes % (Manual) Cancelled 03/10/18 19:25 Eosinophils % (Manual) Cancelled 03/10/18 19:25 Basophils % (Manual) Cancelled 03/10/18 19:25 Metamyelocytes % Cancelled 03/10/18 19:25 Myelocytes % Cancelled 03/10/18 19:25 Promyelocytes % Cancelled 03/10/18 19:25 Blast Cells % Cancelled 03/10/18 19:25 Nucleated RBC % Cancelled 03/10/18 19:25 Seg Neutrophils # 5.6 K/mm3 (1.8-7.7) 03/15/18 05:15 Seg Neutrophils # Man Cancelled 03/10/18 19:25 Band Neutrophils # Cancelled 03/10/18 19:25 Lymphocytes # (Manual) Cancelled 03/10/18 19:25 Abs React Lymphs (Man) Cancelled 03/10/18 19:25 Monocytes # (Manual) Cancelled 03/10/18 19:25 Eosinophils # (Manual) Cancelled 03/10/18 19:25 Basophils # (Manual) Cancelled 03/10/18 19:25 Metamyelocytes # Cancelled 03/10/18 19:25 Myelocytes # Cancelled 03/10/18 19:25 Promyelocytes # Cancelled 03/10/18 19:25 Blast Cells # Cancelled 03/10/18 19:25 WBC Morphology Cancelled 03/10/18 19:25 Hypersegmented Neuts Cancelled 03/10/18 19:25 Hyposegmented Neuts Cancelled 03/10/18 19:25 Hypogranular Neuts Cancelled 03/10/18 19:25 Hypersegmented Polys Cancelled 03/10/18 19:25 Smudge Cells Cancelled 03/10/18 19:25 Toxic Granulation Cancelled 03/10/18 19:25 Toxic Vacuolation Cancelled 03/10/18 19:25 Dohle Bodies Cancelled 03/10/18 19:25 Pelger-Huet Anomaly Cancelled 03/10/18 19:25 Shayla Rods Cancelled 03/10/18 19:25 Platelet Estimate Cancelled 03/10/18 19:25 Clumped Platelets Cancelled 03/10/18 19:25 Plt Clumps, EDTA Cancelled 03/10/18 19:25 Large Platelets Cancelled 03/10/18 19:25 Giant Platelets Cancelled 03/10/18 19:25 Platelet Satelliting Cancelled 03/10/18 19:25 Plt Morphology Comment Cancelled 03/10/18 19:25 RBC Morphology Cancelled 03/10/18 19:25 Dimorphic RBCs Cancelled 03/10/18 19:25 Polychromasia Cancelled 03/10/18 19:25 Hypochromasia Cancelled 03/10/18 19:25 Poikilocytosis Cancelled 03/10/18 19:25 Basophilic Stippling Cancelled 03/10/18 19:25 Anisocytosis Cancelled 03/10/18 19:25 Microcytosis Cancelled 03/10/18 19:25 Macrocytosis Cancelled 03/10/18 19:25 Spherocytes Cancelled 03/10/18 19:25 Pappenheimer Bodies Cancelled 03/10/18 19:25 Sickle Cells Cancelled 03/10/18 19:25 Target Cells Cancelled 03/10/18 19:25 Tear Drop Cells Cancelled 03/10/18 19:25 Ovalocytes Cancelled 03/10/18 19:25 Stomatocytes Cancelled 03/10/18 19:25 Helmet Cells Cancelled 03/10/18 19:25 [place] Bodies Cancelled 03/10/18 19:25 [place] Rings Cancelled 03/10/18 19:25 Sergio Cells Cancelled 03/10/18 19:25 Bite Cells Cancelled 03/10/18 19:25 Crenated Cell Cancelled 03/10/18 19:25 Elliptocytes Cancelled 03/10/18 19:25 Acanthocytes (Spur) Cancelled 03/10/18 19:25 Rouleaux Cancelled 03/10/18 19:25 Hemoglobin C Crystals Cancelled 03/10/18 19:25 Schistocytes Cancelled 03/10/18 19:25 Malaria parasites Cancelled 03/10/18 19:25 Keron Bodies Cancelled 03/10/18 19:25 Hem Pathologist Commnt Cancelled 03/10/18 19:25 PT 13.2 Sec. (12.2-14.9) 03/10/18 21:31 INR 0.95 (0.87-1.13) 03/10/18 21:31 APTT 25.3 Sec. (24.2-36.6) 03/10/18 21:31 Thrombin Time 15.7 Sec. (15.1-19.6) 03/10/18 19:25 Sodium 142 mmol/L (137-145) 03/15/18 05:15 Potassium 4.0 mmol/L (3.6-5.0) 03/15/18 05:15 Chloride 105.6 mmol/L (98-107) 03/15/18 05:15 Carbon Dioxide 26 mmol/L (22-30) 03/15/18 05:15 Anion Gap 14 mmol/L 03/15/18 05:15 BUN 12 mg/dL (7-17) 03/15/18 05:15 Creatinine 0.6 mg/dL (0.7-1.2) L 03/15/18 05:15 Estimated GFR > 60 ml/min 03/15/18 05:15 BUN/Creatinine Ratio 20 % 03/15/18 05:15 Glucose 118 mg/dL (65-100) H 03/15/18 05:15 POC Glucose 84 (70-105) 03/19/18 06:21 Calcium 8.9 mg/dL (8.4-10.2) 03/15/18 05:15 Troponin T < 0.010 ng/mL (0.00-0.029) 03/10/18 19:25 Triglycerides 37 mg/dL (2-149) 03/11/18 05:07 Cholesterol 168 mg/dL (50-199) 03/11/18 05:07 LDL Cholesterol Direct 101 mg/dL (50-130) 03/11/18 05:07 HDL Cholesterol 73 mg/dL (40-59) H 03/11/18 05:07 Cholesterol/HDL Ratio 2.30 % 03/11/18 05:07
--- NOTE | 2018-03-19 11:05 | Discharge Summary ---
Providers - Providers Date of Admission: 03/10/18 23:45 Date of discharge: 03/19/18 Attending physician: SHAILA ZHANG MD 03/10/18 23:45 Consult to Physician [CONS] Routine Comment: Consulting Provider: KIMBER MACDONALD Physician Instructions: Reason For Exam: cva, s.p tpa 03/10/18 23:47 Occupational Therapy Evaluate and Treat [CONS] Routine Comment: Reason For Exam: Neuro deficits Physical Therapy Evaluation and Treat [CONS] Routine Comment: Reason For Exam: Neuro deficits 03/11/18 00:08 Consult to Physician [CONS] Routine Comment: Answering Service Notified Consulting Provider: ABRAN MESA Physician Instructions: Reason For Exam: cva, tpa 03/11/18 12:29 Speech Therapy Evaluation and Treat [CONS] Routine Reason For Exam: aphasia 03/11/18 18:44 Consult to Dietitian/Nutrition [CONS] Routine Physician Instructions: Assess nutrtn needs, initiate, modify, manage TF Reason For Exam: Reason for Consult: Write/Manage Tube Feeding Reason for Consult: Write/Manage Tube Feeding 03/11/18 18:47 Consult to Dietitian/Nutrition [CONS] Routine Physician Instructions: Reason For Exam: Reason for Consult: Write/Manage Tube Feeding Hospitalization Reason for admission: acute CVA with left-sided hemiplegia Condition: Stable Pertinent studies: CT head on 03/10 IMPRESSION: Negative CT of the head. No acute intracranial process noted. On 03/11 IMPRESSION: Evidence of right frontal and right capsuloganglionic infarct again visualized. No acute hemorrhage is seen MRI on 03/11 IMPRESSION: 1. Acute right frontotemporal infarct also involving the right basal ganglia and caudate nucleus. Minimal right to left midline shift of approximately 2 millimeters. 2. Probable occlusion of the right MCA. 3. Mild chronic findings of microvascular ischemic disease. Hospital course: This is a 57-year-old woman with a history of hypertension comes emergency room because she was found on the floor by her around 4:45 PM. She is noted to be aphasic and unable to move the left side. She status post TPA, CTA of head and neck was done, shortly after the patient developed swelling on the left side of lower lip. CT head was negative and TPA was given and sent to ICU. Patient has left- sided hemiplegia with left-sided facial droop.IMRI was done and here is the impression 1. Acute right frontotemporal infarct also involving the right basal ganglia and caudate nucleus. Minimal right to left midline shift of approximately 2 millimeters. 2. Probable occlusion of the right MCA. 3. Mild chronic findings of microvascular ischemic disease. Patient was initially nothing by mouth, given IV fluids. Neurology consult appreciated. Patient placed on Lipitor, aspirin and appropriate prophylaxis was given. Patient was initially failed swallow evaluation and was nothing by mouth. Later evaluated by speech therap and recommended pured diet and thin liquids. Patient's blood pressure was normal limit in her stay and didn't need antihypertensives. Patient was evaluated by PT and recommended subacute rehab. Patient was hemodynamically stable at the time of discharge. Concerns and questions what I decided the bedside. Discussed the management plan with the family and the patient. Disposition: [id number] Time spent for discharge: 35 minutes - Discharge Diagnoses (1) Acute CVA (cerebrovascular accident) Status: Acute (2) Allergic reaction Status: Acute (3) Dysarthria Status: Acute (4) History of hypertension Status: Acute (5) Left-sided weakness Status: Acute (6) Received intravenous tissue plasminogen activator (tPA) in emergency department Status: Acute (7) Weakness on left side of face Status: Acute Core Measure Documentation - Palliative Care Palliative Care/ Comfort Measures: Not Applicable - Core Measures Any of the following diagnoses?: stroke - Stroke Discharge Requirements Statin for LDL = or >70 mg/dl on DC: Yes Anticoag for atrial fib/atrial flutter: Not Applicable Antithrombotic for ischemic stroke: Yes Exam - Physical Exam Narrative exam: Not in cardiopulmonary distress. The patient is obese. Vital signs as documented. Head exam is unremarkable. No scleral icterus . Neck is without jugular venous distension, thyromegaly, or carotid bruits. Lungs are clear to auscultation. Cardiac exam reveals regular rate and Rhythm. First and second heart sounds normal. No murmurs, rubs or gallops. Abdominal exam reveals normal bowel sounds, no masses, no organomegaly and no aortic enlargement. Extremities are nonedematous and both femoral and pedal pulses are normal. MATERIAL CHASER: Left-sided hemiplegia, left sided facial droop. - Constitutional Vitals: Temp Pulse Resp BP Pulse Ox 97.7 F 76 18 102/59 96 03/19/18 06:22 03/19/18 06:22 03/19/18 06:22 03/19/18 06:22 03/19/18 08:40 Plan Activity: advance as tolerated Weight Bearing Status: Non-Weight Bearing Diet: low cholesterol Special Instructions: physical therapy, occupational therapy Durable Medical Equipment Needed Upon Discharge: Bedside Commode Follow up with: ANGELA NICHOLS [Other] - 7 Days Prescriptions: AtorvaSTATin [Lipitor] 40 mg PO QHS #30 tablet Aspirin EC [Aspirin Enteric Coated TAB] 81 mg PO QDAY #30 tablet Clopidogrel [Plavix] 75 mg PO QDAY #30 tablet
[2018-03-19] MEDS: PEPCID PO SCH (13:00)
[2018-03-19] MEDS: HALFPRIN EC PO SCH (13:00)
[2018-03-19] MEDS: PLAVIX PO SCH (13:00)
[2018-03-19 13:06] VITALS: BP 113/56
== END 2018-03-19 13:40 | DRG 62 ==
LOC: ED 19:17 → CC1 23:45 → 4A 03-13 16:53 → 3A 03-15 17:33
PROVIDERS: ADMIT Internal Medicine; ATTEND Internal Medicine
DX: I63.511 Cerebral infarction due to unspecified occlusion or stenosis of right middle cerebral artery (principal); G81.94 Hemiplegia, unspecified affecting left nondominant side; T78.40XA Allergy, unspecified, initial encounter; I10 Essential (primary) hypertension; R47.1 Dysarthria and anarthria; X58.XXXA Exposure to other specified factors, initial encounter; D72.829 Elevated white blood cell count, unspecified; R60.9 Edema, unspecified; R29.713 NIHSS score 13; R47.01 Aphasia; Z82.49 Family history of ischemic heart disease and other diseases of the circulatory system; Z79.899 Other long term (current) drug therapy
CPT/HCPCS: 36415; 70450; 70496; 70498; 70544; 70551; 74018; 74230; 80048; 80061; 82962; 84484; 85025; 85027; 85610; 85670; 85730; 93005; 93010; 93306; 94760; 95819; A9270-GY; J1200; J1650; J2930; J2997; J7030; J7042; Q9967